=== PATIENT | male | born 1950 | race Caucasian/White ===

== ENCOUNTER 2023-09-16 14:51 | Emergency (ER) | payer MEDICARE, SELFPAY ==
--- NOTE | 2023-09-16 14:53 | XRR_ITS ---
PROCEDURE INFORMATION: Exam: XR Chest Exam date and time: 09/16/2023 2:59 PM Age: 73 years old Clinical indication: Cough and dyspnea; Additional info: Dyspnea/cough TECHNIQUE: Imaging protocol: Radiologic exam of the chest. Views: 1 view. COMPARISON: No relevant prior studies available. FINDINGS: Lungs: Unremarkable. No consolidation. Pleural spaces: Unremarkable. No pleural effusion. No pneumothorax. Heart/Mediastinum: Unremarkable. No cardiomegaly. Bones/joints: Unremarkable. XR/XR chest 1V portable [id number] IMPRESSION: No acute findings.
[2023-09-16 14:54] VITALS: PULSE 81; RESP 19; TEMP 36.8; O2SAT 92; BMI 24.3
--- NOTE | 2023-09-16 14:58 | ECG_ITS ---
[facility] Test Date: 2023-09-16 Pat Name: Jason Huang Department: Room: Gender: Male Negative Turner Apprentice: : 1950 Requested By: Yanick Ortega Order Number: [id number] Riddhi MD: Anthony Cruz M.D. Measurements Intervals [place] Rate: 89 P: 0 ME: 0 QRS: -51 QRSD: 94 T: 70 QT: 355 QTc: 432 Interpretive Statements ATRIAL FLUTTER/TACHYCARDIA WITH ABERRANT CONDUCTION OR VENTRICULAR PREMATURE COMPLEXES LEFT AXIS DEVIATION [QRS AXIS < -30] INCOMPLETE RIGHT BUNDLE BRANCH BLOCK [90+ ms QRS DURATION, TERMINAL R IN V1/V2, 40+ ms S IN I/aVL/V4/V5/V6] No previous ECG available for comparison Electronically Signed On 09-16-2023 18:42:56 CDT by Anthony Cruz M.D. [email or web address]laird hospitalAudiBell Designsking[facility] [place].[email or web address]/store/NU/[id number] f
--- NOTE | 2023-09-16 15:02 | ED_ITS ---
Documented by User: Yanick Magallon DO 09/17/23 07:49 HPI - Chest Pain 2 General: Chief Complaint: Chest Pain Stated Complaint: Chest discomfort Time Seen by Provider: 09/16/23 14:52 Source: patient Mode of arrival: ambulatory History of Present Illness: 73-year-old male who presents emergency room with complaints of intermittent episodes of chest discomfort and palpitations began 4 days ago. No known cardiac history. He does have a history of hypertension. Patient reports episodes of waking up in the middle of the night trying to catch his breath last for few seconds and then resolves. No sustained chest pain does not notice anything exacerbates or relieves his symptoms no history of coronary disease. MD complaint: chest pain Onset (ago): day(s) (4) Timing of current episode: episodic Onset: during rest Pain location: substernal Severity: mild Quality: tightness Relieving factors: nothing Exacerbating factors: nothing Associated symptoms: Deny abdominal pain, diaphoresis, dyspnea, fever(s), leg edema, nausea, palpitations, sense of impending doom, syncope or vomiting Treatment prior to arrival: none Review of Systems 2 Const: Denies: fever(s), chills or diaphoresis Card: Denies: chest pain, palpitations or syncope Resp: Denies: dyspnea GI: Denies: abdominal pain, nausea or vomiting : Denies: dysuria, urinary frequency or urinary urgency Musc: Denies: neck pain or back pain Skin/Breast: Denies: rash PFSH ED 2 PFSH: Medical History (Updated 09/16/23 @ 18:56 by Kam Chacko MD) HTN (hypertension) Physical Exam 2 Const: COMMON NORMALS: no acute distress GENERAL APPEARANCE: cooperative and comfortable ORIENTATION/CONSCIOUSNESS: Yes awake, Yes oriented to person, Yes oriented to place and Yes oriented to time HENMT: COMMON NORMALS: normocephalic, atraumatic and hearing grossly normal bilaterally HEAD & SCALP: normocephalic and atraumatic Resp: COMMON NORMALS: normal respiratory effort, No retractions, No use of accessory muscles and clear to auscultation bilaterally AUSCULTATION: clear to auscultation bilaterally Cardio: COMMON NORMALS: regular rate, regular rhythm and No murmurs present (Cardio) RATE: regular rate RHYTHM: regular rhythm GI: COMMON NORMALS: Soft to palpation and No hepatosplenomegaly present A USCULTATION: Yes normoactive bowel sounds PALPATION: Yes Soft to palpation, No Tenderness to palpation present (GI), No Guarding due to palpation present (GI) and Yes No hepatosplenomegaly present Extremity: COMMON NORMALS: normal to inspection, capillary refill normal, no clubbing, cyanosis or edema, no calf tenderness and no pedal edema Neuro: SENSORIUM/ORIENTATION: Yes oriented to person, Yes oriented to place and Yes oriented to time Skin: COMMON NORMALS: no rashes or lesions noted GENERAL SKIN EXAM: no rashes or lesions noted Course 2 Vital Signs: Vital signs: Vital Signs Temperature 98.2 F 09/16/23 14:54 Pulse Rate 73 09/16/23 19:17 Respiratory Rate 19 H 09/16/23 19:17 Blood Pressure 125/64 09/16/23 19:17 Pulse Oximetry 96 09/16/23 19:17 Oxygen Delivery Me thod Room Air 09/16/23 14:54 MDM - Chest Pain Medical Decision Making Care signed out to Dr. Chacko at change of shift. See final notes for diagnosis and disposition. I have discussed the patient's case with the off going physician <Dr. Magallon > and I have assumed care of the patient. We have discussed the current lab/radiographic results that have been resulted and the pending tests. Medical Records I reviewed the patient's medical records. Lab Data I reviewed the patient's lab results. 09/16/23 15:12 09/16/23 15:12 Radiology Impressions Chest X-Ray 09/16/23 14:53 IMPRESSION: No acute findings. Laboratory Results WBC 5.98 10^3/uL (3.29-11.43) 09/16/23 15:12 RBC 4.53 10^6/uL (3.85-5.65) 09/16/23 15:12 Hgb 13.80 g/dL (11.27-16.99) 09/16/23 15:12 Hct 42.6 % (37-53) 09/16/23 15:12 MCV 94.0 fl (82-101) 09/16/23 15:12 MCH 30.5 pg (27-33) 09/16/23 15:12 MCHC 32.4 g/dL (30-55) 09/16/23 15:12 RDW 13.2 % (12.1-15.1) 09/16/23 15:12 Plt Count 189 10^3/cmm (157-399) 09/16/23 15:12 MPV 9.7 fL (7.4-10.4) 09/16/23 15:12 Neut % (Auto) 70.8 % 09/16/23 15:12 Lymph % (Auto) 18.7 % 09/16/23 15:12 [place] % (Auto) 7.9 % 09/16/23 15:12 Eos % (Auto) 1.3 % 09/16/23 15:12 Baso % (Auto) 1.0 % 09/16/23 15:12 Neut # (Auto) 4.23 10^3/uL (1.8-7.7) 09/16/23 15:12 Lymph # (Auto) 1.1 10^3/uL (0.8-4.8) 09/16/23 15:12 [place] # (Auto) 0.5 10^3/uL (0.2-0.9) 09/16/23 15:12 Eos # (Auto) 0.1 10^3/uL (0.0-0.8) 09/16/23 15:12 Baso # (Auto) 0.1 10^3/uL (0.0-0.1) 09/16/23 15:12 Nucleated RBC % (auto) 0 % 09/16/23 15:12 Nucleated RBCs # 0.0 /100WBC 09/16/23 15:12 Sodium 137 mmol/L (136-145) 09/16/23 15:12 Potassium 3.9 mmol/L (3.5-5.1) 09/16/23 15:12 Chloride 100 mmol/L (98-107) 09/16/23 15:12 Carbon Dioxide 24 mmol/L (22-29) 09/16/23 15:12 Anion Gap 16.9 (5-19) 09/16/23 15:12 BUN 18 mg/dL (8-23) 09/16/23 15:12 Creatinine 0.9 mg/dL (0.7-1.2) 09/16/23 15:12 GFR Calculation Not Reportable 09/16/23 15:12 Glucose 94 mg/dL (65-115) 09/16/23 15:12 Calculated Osmolality 286 mOsm/kg (285-295) 09/16/23 15:12 Calcium 9.4 mg/dL (8.5-10.5) 09/16/23 15:12 Total Bilirubin 0.8 mg/dL (0.15-1.2) 09/16/23 15:12 AST 110 U/L (0-40) H 09/16/23 15:12 ALT 156 U/L (0-41) H 09/16/23 15:12 Alkaline Phosphatase 135 U/L (40-130) H 09/16/23 15:12 Troponin T Baseline 15 ng/L (0-15) 09/16/23 15:12 Troponin T 120 Minute 16.39 ng/L (0-15) H 09/16/23 17:30 Delta Troponin T 1.39 ABS# (0-10) 09/16/23 17:30 Total Protein 7.2 g/dL (6.6-8.7) 09/16/23 15:12 Albumin 4.5 g/dL (3.5-5.2) 09/16/23 15:12 Globulin 2.7 g/dL (1.3-4.6) 09/16/23 15:12 Lipase 25 U/L (13-60) 09/16/23 15:12 Urine Color Colorless (Yellow) 09/16/23 15:25 Urine Appearance Clear (CLEAR) 09/16/23 15:25 Urine pH 5 (5-7) 09/16/23 15:25 Ur Specific [place] 1.005 (1.005-1.030) 09/16/23 15:25 Urine Protein Neg (Negative) 09/16/23 15:25 Urine Glucose (UA) Norm (Normal) 09/16/23 15:25 Urine Ketones Negative (Negative) 09/16/23 15:25 Urine Blood Neg (Negative) 09/16/23 15: Urine Nitrate Negative (Negative) 09/16/23 15:25 Urine Bilirubin Neg (Negative) 09/16/23 15:25 Urine Urobilinogen Neg mg/dL (Negative) 09/16/23 15:25 Ur Leukocyte Esterase Negative (Negative) 09/16/23 15:25 Hepatitis A IgM Ab Non-reactive (Nonreactive) 09/16/23 15:12 Hep Bs Antigen Non-reactive (Nonreactive) 09/16/23 15:12 Hep B Core IgM Ab Non-reactive (Nonreactive) 09/16/23 15:12 Hepatitis C Antibody Non-reactive (Nonreactive) 09/16/23 15:12 Discharge Plan Discharge Patient Disposition: Home Clinical Impression: Atypical chest pain, Heart palpitations, Elevated liver transaminase level Condition: Stable Prescriptions: No Action lisinopril-hydrochlorothiazide 10-12.5 mg tablet 1 tab PO DAILY Discharge Orders: Discharge ED (Routine); Ordered 09/16/23 Ordered By: Kam Chacko Discharge Diet: Usual diet Discharge Activity: Resume usual activity Patient Instructions: Opioid Safety, Pain Management Activity Restrictions/Additional Instructions: Activity Restrictions/Additional Instructions: Thank you for choosing [facility] for your healthcare needs today. Please realize that you were seen in the Emergency Department and that we are providing you with an emergency medical screening exam and this may not be a complete and all inclusive of all the testing and or medical work-up that you may need to determine your ailment or severity of your illness. It is very important that you follow-up as instructed with your Primary care provider or Specialist for additional evaluation and to discuss your medical treatment plan. Coding Level of Care Code ED Veterinary Anatomist for Chg Fwd Documented by User: Kam Chacko MD 09/16/23 18:59 HPI - Chest Pain 2 General: Chief Complaint: Chest Pain Stated Complaint: Chest discomfort Time Seen by Provider: 09/16/23 14:52 [facility] ED 2 PFSH: Medical History (Updated 09/16/23 @ 18:56 by Kam Chacko MD) HTN (hypertension) Course 2 Vital Signs: Vital signs: Vital Signs Temperature 98.2 F 09/16/23 14:54 Pulse Rate 73 09/16/23 19:17 Respiratory Rate 19 H 09/16/23 19:17 Blood Pressure 125/64 09/16/23 19:17 Pulse Oximetry 96 09/16/23 19:17 Oxygen Delivery Me thod Room Air 09/16/23 14:54 MDM - Chest Pain Medical Decision Making I have discussed the patient's case with the off going physician <Dr. Magallon > and I have assumed care of the patient. We have discussed the current lab/radiographic results that have been resulted and the pending tests. Lab Data 09/16/23 15:12 09/16/23 15:12 Radiology Impressions Chest X-Ray 09/16/23 14:53 IMPRESSION: No acute findings. Laboratory Results WBC 5.98 10^3/uL (3.29-11.43) 09/16/23 15:12 RBC 4.53 10^6/uL (3.85-5.65) 09/16/23 15:12 Hgb 13.80 g/dL (11.27-16.99) 09/16/23 15:12 Hct 42.6 % (37-53) 09/16/23 15:12 MCV 94.0 fl (82-101) 09/16/23 15:12 MCH 30.5 pg (27-33) 09/16/23 15:12 MCHC 32.4 g/dL (30-55) 09/16/23 15:12 RDW 13.2 % (12.1-15.1) 09/16/23 15:12 Plt Count 189 10^3/cmm (157-399) 09/16/23 15:12 MPV 9.7 fL (7.4-10.4) 09/16/23 15:12 Neut % (Auto) 70.8 % 09/16/23 15:12 Lymph % (Auto) 18.7 % 09/16/23 15:12 [place] % (Auto) 7.9 % 09/16/23 15:12 Eos % (Auto) 1.3 % 09/16/23 15:12 Baso % (Auto) 1.0 % 09/16/23 15:12 Neut # (Auto) 4.23 10^3/uL (1.8-7.7) 09/16/23 15:12 Lymph # (Auto) 1.1 10^3/uL (0.8-4.8) 09/16/23 15:12 [place] # (Auto) 0.5 10^3/uL (0.2-0.9) 09/16/23 15:12 Eos # (Auto) 0.1 10^3/uL (0.0-0.8) 09/16/23 15:12 Baso # (Auto) 0.1 10^3/uL (0.0-0.1) 09/16/23 15:12 Nucleated RBC % (auto) 0 % 09/16/23 15:12 Nucleated RBCs # 0.0 /100WBC 09/16/23 15:12 Sodium 137 mmol/L (136-145) 09/16/23 15:12 Potassium 3.9 mmol/L (3.5-5.1) 09/16/23 15:12 Chloride 100 mmol/L (98-107) 09/16/23 15:12 Carbon Dioxide 24 mmol/L (22-29) 09/16/23 15:12 Anion Gap 16.9 (5-19) 09/16/23 15:12 BUN 18 mg/dL (8-23) 09/16/23 15:12 Creatinine 0.9 mg/dL (0.7-1.2) 09/16/23 15:12 GFR Calculation Not Reportable 09/16/23 15:12 Glucose 94 mg/dL (65-115) 09/16/23 15:12 Calculated Osmolality 286 mOsm/kg (285-295) 09/16/23 15:12 Calcium 9.4 mg/dL (8.5-10.5) 09/16/23 15:12 Total Bilirubin 0.8 mg/dL (0.15-1.2) 09/16/23 15:12 AST 110 U/L (0-40) H 09/16/23 15:12 ALT 156 U/L (0-41) H 09/16/23 15:12 Alkaline Phosphatase 135 U/L (40-130) H 09/16/23 15:12 Troponin T Baseline 15 ng/L (0-15) 09/16/23 15:12 Troponin T 120 Minute 16.39 ng/L (0-15) H 09/16/23 17:30 Delta Troponin T 1.39 ABS# (0-10) 09/16/23 17:30 Total Protein 7.2 g/dL (6.6-8.7) 09/16/23 15:12 Albumin 4.5 g/dL (3.5-5.2) 09/16/23 15:12 Globulin 2.7 g/dL (1.3-4.6) 09/16/23 15:12 Lipase 25 U/L (13-60) 09/16/23 15:12 Urine Color Colorless (Yellow) 09/16/23 15:25 Urine Appearance Clear (CLEAR) 09/16/23 15:25 Urine pH 5 (5-7) 09/16/23 15:25 Ur Specific [place] 1.005 (1.005-1.030) 09/16/23 15:25 Urine Protein Neg (Negative) 09/16/23 15:25 Urine Glucose (UA) Norm (Normal) 09/16/23 15: Urine Ketones Negative (Negative) 09/16/23 15: Urine Blood Neg (Negative) 09/16/23 15: Urine Nitrate Negative (Negative) 09/16/23 15: Urine Bilirubin Neg (Negative) 09/16/23 15:25 Urine Urobilinogen Neg mg/dL (Negative) 09/16/23 15:25 Ur Leukocyte Esterase Negative (Negative) 09/16/23 15:25 Hepatitis A IgM Ab Non-reactive (Nonreactive) 09/16/23 15:12 Hep Bs Antigen Non-reactive (Nonreactive) 09/16/23 15:12 Hep B Core IgM Ab Non-reactive (Nonreactive) 09/16/23 15:12 Hepatitis C Antibody Non-reactive (Nonreactive) 09/16/23 15:12 All radiology interpretation(s) finalized by discharge Discharge Plan Discharge Patient Disposition: Home Clinical Impression: Atypical chest pain, Heart palpitations, Elevated liver transaminase level Condition: Stable Prescriptions: No Action lisinopril-hydrochlorothiazide 10-12.5 mg tablet 1 tab PO DAILY Discharge Orders: Discharge ED (Routine); Ordered 09/16/23 Ordered By: Kam Chacko Discharge Diet: Usual diet Discharge Activity: Resume usual activity Patient Instructions: Opioid Safety, Pain Management Activity Restrictions/Additional Instructions: Activity Restrictions/Additional Instructions: Thank you for choosing [facility] for your healthcare needs today. Please realize that you were seen in the Emergency Department and that we are providing you with an emergency medical screening exam and this may not be a complete and all inclusive of all the testing and or medical work-up that you may need to determine your ailment or severity of your illness. It is very important that you follow-up as instructed with your Primary care provider or Specialist for additional evaluation and to discuss your medical treatment plan. Coding Level of Care Code ED Veterinary Anatomist for Maria L Encarnacion
[2023-09-16] MEDS: labetalol 5 mg/mL SDV 20mL 10 MG IVP (15:24)
[2023-09-16 15:25] LABS: Basophils # 0.1 10^3/uL (0.0-0.1); Eosinophils # 0.1 10^3/uL (0.0-0.8); Eosinophils % 1.3 %; Hematocrit 42.6 % (37-53); Lymphocytes # 1.1 10^3/uL (0.8-4.8); Lymphocytes % 18.7 %; Mean Corpuscular HGB Conc 32.4 g/dL (30-55); Mean Corpuscular Hemoglobin 30.5 pg (27-33); Mean Platelet Volume 9.7 fL (7.4-10.4); Monocytes # 0.5 10^3/uL (0.2-0.9); Monocytes % 7.9 %; Neutrophils # 4.23 10^3/uL (1.8-7.7); Neutrophils % 70.8 %; Nucleated Red Blood Cells % 0 %; Platelet Count 189 10^3/cmm (157-399); Red Blood Count 4.53 10^6/uL (3.85-5.65); Red Cell Distribution Width 13.2 % (12.1-15.1); White Blood Count 5.98 10^3/uL (3.29-11.43)
[2023-09-16 15:27] VITALS: BP 194/86; PULSE 86; RESP 25; O2SAT 96
[2023-09-16 15:39] LABS: Alanine Aminotransferase 156 U/L (0-41); Albumin Level 4.5 g/dL (3.5-5.2); Alkaline Phosphatase 135 U/L (40-130); Anion Gap 16.9 (5-19); Aspartate Amino Transferase 110 U/L (0-40); Blood Urea Nitrogen 18 mg/dL (8-23); Calcium 9.4 mg/dL (8.5-10.5); Carbon Dioxide 24 mmol/L (22-29); Chloride 100 mmol/L (98-107); Creatinine Clr Calc Pharmacy 72.4489; Globulin 2.7 g/dL (1.3-4.6); Glucose 94 mg/dL (65-115); Osmolality Calculated 286 mOsm/kg (285-295); Potassium 3.9 mmol/L (3.5-5.1); Sodium 137 mmol/L (136-145); Total Bilirubin 0.8 mg/dL (0.15-1.2); Total Protein 7.2 g/dL (6.6-8.7)
[2023-09-16 15:43] LABS: Add Urine Microscopic? NO; Charge for UA Resulting for Rev
[2023-09-16 15:48] LABS: Bilirubin Urine Neg (Negative); Blood Urine Neg (Negative); Glucose Urine UA Norm (Normal); Ketones Urine Negative (Negative); Leukocyte Esterase Urine Negative (Negative); Nitrate Urine Negative (Negative); Protein Urine Neg (Negative); Specific Gravity, Urine 1.005 (1.005-1.030); Urine Appearance Clear (CLEAR); Urine Color Colorless (Yellow); Urobilinogen Urine Neg (Negative); pH Urine 5 (5-7)
[2023-09-16 15:50] VITALS: BP 130/90
--- NOTE | 2023-09-16 16:09 | PC.NURSE ---
Glucose recheck: 200 via fingerstick, Dr. Magallon notified
[2023-09-16 16:15] LABS: Lipase 25 U/L (13-60)
--- NOTE | 2023-09-16 16:41 | ECG_ITS ---
[facility] Test Date: 2023-09-16 Pat Name: Jason Huang Department: Room: Gender: Male Laboratory Clerk: : 1950 Requested By: Yanick Ortega Order Number: [id number] Riddhi MD: Anthony Cruz M.D. Measurements Intervals [place] Rate: 62 P: 0 MA: 0 QRS: -42 QRSD: 98 T: -8 QT: 466 QTc: 475 Interpretive Statements ATRIAL FLUTTER/TACHYCARDIA WITH ABERRANT CONDUCTION OR VENTRICULAR PREMATURE COMPLEXES LEFT AXIS DEVIATION [QRS AXIS < -30] POSSIBLE ANTERIOR MYOCARDIAL INFARCTION , PROBABLY OLD [30 ms Q WAVE IN V3/V4, OR R < 0.2 mV IN V4] Compared to ECG 09/16/2023 14:58:45 Ventricular premature complex(es) now present Myocardial infarct finding now present Incomplete right bundle-branch block no longer present Electronically Signed On 09-16-2023 18:43:50 CDT by Anthony Cruz M.D. [id number]
[2023-09-16 17:11] LABS: Troponin(5th) Baseline 15 ng/L (0-15)
[2023-09-16 18:00] VITALS: BP 133/69; PULSE 74; O2SAT 98
[2023-09-16 18:10] LABS: Troponin 5 2HR 16.39 ng/L (0-15); Troponin 5 2HR Delta 1.39 ABS# (0-10)
[2023-09-16 19:17] VITALS: BP 125/64; PULSE 73; RESP 19; O2SAT 96
[2023-09-16 21:00] LABS: Hepatitis A Antibody IgM Non-Reactive (Nonreactive); Hepatitis B Core IgM Non-Reactive (Nonreactive); Hepatitis B Surface Antigen Non-Reactive (Nonreactive)
[2023-09-17 02:25] LABS: Hepatitis C Virus Antibody Non-Reactive (Nonreactive)
== END 2023-09-16 19:19 | disposition home or self-care (01) ==
PROVIDERS: Family Medicine; Emergency Provider Internal Medicine; PCP Nurse Practitioner Family
DX: R07.89 Other chest pain (principal); R00.2 Palpitations; R74.01 Elevation of levels of liver transaminase levels; I10 Essential (primary) hypertension
CPT/HCPCS: 36415; 71045; 80053; 80074; 81003; 83690; 84484; 85025; 93005; 96374; 99285; J3490

== ENCOUNTER 2023-09-18 12:30 | Inpatient (IN) | payer MEDICARE, SELFPAY ==
[2023-09-18] VITALS (22 sets, daily range): BP systolic 113–193; BP diastolic 60–128; PULSE 56–87; RESP 11–22; TEMP 36.7–36.9; O2SAT 93–98; BMI 24.3
--- NOTE | 2023-09-18 12:47 | XR_ITS ---
WS: [id number] Portable AP upright chest, 09/18/2023 Clinical Data: htn Comparison: Portable chest, 09/16/2023 Findings: No nodules, masses or effusions are seen. The heart is normal. The pulmonary vascularity is not increased. No pneumonia or pneumothorax is seen. The aortic arch and descending thoracic aorta s how tortuosity. Impression: Atherosclerosis.
--- NOTE | 2023-09-18 13:21 | ED_ITS ---
HPI - Recheck/Abnormal Lab/Rx 2 General: Chief Complaint: Recheck/Abnormal Lab/Rx Stated Complaint: elevated bp Time Seen by Provider: 09/18/23 13:11 Source: patient Mode of arrival: ambulatory History of Present Illness: 73-year-old male presents to the emergen cy room from [facility]. He was seen 2 days ago here with palpitation unusual shortness of breath cardiac evaluation was negative blood pressure initially was elevated and then improved. He was discharged home with no medication changes. He presented to [facility] again today they reported elevated blood pressure. No chest pain at this time. Patient has known atrial fibrillation but his rate has been controlled. Family at the bedside later states his rate had [facility] was in the 30s. He is still taking lisinopril hydrochlorothiazide daily. Review of Systems 2 Const: Denies: fever(s) or chills Card: Denies: chest pain Resp: Denies: dyspnea GI: Denies: abdominal pain : Denies: dysuria, urinary frequency or urinary urgency Musc: Denies: neck pain or back pain Skin/Breast: Denies: rash PFSH ED 2 PFSH: Medical History HTN (hypertension) Physical Exam 2 Const: GENERAL APPEARANCE: cooperative and comfortable O RIENTATION/CONSCIOUSNESS: Yes awake, Yes oriented to person, Yes oriented to place and Yes oriented to time HENMT: COMMON NORMALS: normocephalic, atraumatic and hearing grossly normal bilaterally HEAD & SCALP: normocephalic and atraumatic Resp: COMMON NORMALS: normal respiratory effort, No retractions, No use of accessory muscles and clear to auscultation bilaterally AUSCULTATION: clear to auscultation bilaterally Cardio: COMMON NORMALS: regular rate and No murmurs present (Cardio) RATE: regular rate RHYTHM: abnormal rhythm irregularly irregular GI: COMMON NORMALS: Soft to palpation and No hepatosplenomegaly present A USCULTATION: Yes normoactive bowel sounds PALPATION: Yes Soft to palpation, No Tenderness to palpation present (GI), No Guarding due to palpation present (GI) and Yes No hepatosplenomegaly present Extremity: COMMON NORMALS: normal to inspection, capillary refill normal, no clubbing, cyanosis or edema, no calf tenderness and no pedal edema Neuro: SENSORIUM/ORIENTATION: Yes oriented to person, Yes oriented to place and Yes oriented to time Skin: COMMON NORMALS: no rashes or lesions noted GENERAL SKIN EXAM: no rashes or lesions noted Course 2 Vital Signs: Vital signs: Vital Signs Temperature 98.1 F 09/18/23 12:37 Pulse Rate 87 09/18/23 12:37 Respiratory Rate 16 09/18/23 12:37 Blood Pressure 168/98 09/18/23 17:50 Pulse Oximetry 95 09/18/23 15:00 Oxygen Delivery Me thod Room Air 09/18/23 15:00 MDM - Recheck/Abnormal Lab/Rx Medical Decision Making Cardiac enzymes negative. Went back talk to patient has not had any further symptoms. Family had noted some rates in the 30s while he was here had not been notified a staff and had not noticed that on the monitor while he was here. While I was in the room he started having significant frequent PVCs. He has known A-fib flutter with a rate has been well-controlled. When he seen him a couple days ago it was well-controlled he was discharged home. Initially gave him metoprolol 25 mg once. About an hour and a half that hour and 45 minutes after getting that he had a sustained run in the 30s. We pulled that up off of the electronic monitoring system printed out and scanned into the chart. Looks like at times he may have been in a full heart block. He did never had any symptoms from that and was not hypotensive. Discussed with the patient and the family will admit discussed with hospitalist and consulted Dr. Cruz from cardiology. Blood pressure still mildly hypertensive but reasonably well- controlled at this point. Medical Records I reviewed the patient's medical records. Lab Data I reviewed the patient's lab results. 09/18/23 13:29 09/18/23 13:29 Laboratory Results WBC 6.38 10^3/uL (3.29-11.43) 09/18/23 13:29 RBC 4.46 10^6/uL (3.85-5.65) 09/18/23 13:29 Hgb 13.80 g/dL (11.27-16.99) 09/18/23 13:29 Hct 42.2 % (37-53) 09/18/23 13:29 MCV 94.6 fl (82-101) 09/18/23 13: MCH 30.9 pg (27-33) 09/18/23 13: MCHC 32.7 g/dL (30-55) 09/18/23 13: RDW 13.2 % (12.1-15.1) 09/18/23 13: Plt Count 195 10^3/cmm (157-399) 09/18/23 13: MPV 9.7 fL (7.4-10.4) 09/18/23 13: Neut % (Auto) 75.6 % 09/18/23 13: Lymph % (Auto) 13.8 % 09/18/23 13: [place] % (Auto) 8.9 % 09/18/23 13: Eos % (Auto) 0.6 % 09/18/23 13: Baso % (Auto) 0.8 % 09/18/23 13: Neut # (Auto) 4.82 10^3/uL (1.8-7.7) 09/18/23 13:29 Lymph # (Auto) 0.9 10^3/uL (0.8-4.8) 09/18/23 13:29 [place] # (Auto) 0.6 10^3/uL (0.2-0.9) 09/18/23 13: Eos # (Auto) 0.0 10^3/uL (0.0-0.8) 09/18/23 13: Baso # (Auto) 0.1 10^3/uL (0.0-0.1) 09/18/23 13: Nucleated RBC % (auto) 0 % 09/18/23 13: Nucleated RBCs # 0.0 /100WBC 09/18/23 13:29 Sodium 140 mmol/L (136-145) 09/18/23 13:29 Potassium 4.2 mmol/L (3.5-5.1) 09/18/23 13: Chloride 102 mmol/L (98-107) 09/18/23 13: Carbon Dioxide 25 mmol/L (22-29) 09/18/23 13:29 Anion Gap 17.2 (5-19) 09/18/23 13:29 BUN 23 mg/dL (8-23) 09/18/23 13:29 Creatinine 0.9 mg/dL (0.7-1.2) 09/18/23 13:29 GFR Calculation Not Reportable 09/18/23 13:29 Glucose 113 mg/dL (65-115) 09/18/23 13:29 Calculated Osmolality 294 mOsm/kg (285-295) 09/18/23 13:29 Calcium 9.6 mg/dL (8.5-10.5) 09/18/23 13:29 Total Bilirubin 0.6 mg/dL (0.15-1.2) 09/18/23 13:29 AST 75 U/L (0-40) H 09/18/23 13:29 ALT 174 U/L (0-41) H 09/18/23 13:29 Alkaline Phosphatase 138 U/L (40-130) H 09/18/23 13:29 Troponin T Baseline 16 ng/L (0-15) H 09/18/23 13:29 Troponin T 120 Minute 17.03 ng/L (0-15) H 09/18/23 15:46 Delta Troponin T 1.03 ABS# (0-10) 09/18/23 15:46 NT-Pro-B Natriuret Pep 1768 pg/mL (0-125) H 09/18/23 13:29 Total Protein 6.9 g/dL (6.6-8.7) 09/18/23 13:29 Albumin 4.6 g/dL (3.5-5.2) 09/18/23 13:29 Globulin 2.3 g/dL (1.3-4.6) 09/18/23 13:29 TSH 1.61 uIU/mL (0.27-4.20) 09/18/23 13:29 All radiology interpretation(s) finalized by discharge Discharge Plan Discharge Patient Disposition: Admitted As Inpatient Clinical Impression: HTN (hypertension), Bradycardia, severe sinus, Atrial fibrillation/flutter Condition: Stable Prescriptions: No Action lisinopril-hydrochlorothiazide 10-12.5 mg tablet 1 tab PO DAILY Referrals: Snow Barahona FNP [Primary Care Provider] - Coding Level of Care Code ED Mechanical Cad Designer for Refugiog Alysha
--- NOTE | 2023-09-18 13:25 | ECG_ITS ---
[facility] Test Date: 2023-09-18 Pat Name: Jason Huang Department: Room: Gender: Male Roll Weigher: : 1950 Requested By: Ana Ortega Order Number: [id number] CARLOS Hannon MD: Quincy Payne M.D. Measurements Intervals [place] Rate: 76 P: 0 ND: 0 QRS: -46 QRSD: 102 T: 82 QT: 406 QTc: 457 Interpretive Statements ATRIAL FLUTTER WITH ABERRANT CONDUCTION OR VENTRICULAR PREMATURE COMPLEXES LEFT ANTERIOR FASCICULAR BLOCK [QRS AXIS <= -45, QR IN I, RS IN II] MINIMAL VOLTAGE CRITERIA FOR LVH, CONSIDER NORMAL VARIANT [MEETS CRITERIA IN ONE OF: R(aVL), S(V1), R(V5), R(V5/V6)+S(V1)] SEPTAL MYOCARDIAL INFARCTION , PROBABLY OLD [40+ ms Q WAVE IN V1/V2] Compared to ECG 09/16/2023 16:53:17 Ventricular premature complex(es) now present Left anterior fascicular block now present Left-axis deviation no longer present Myocardial infarct finding still present Electronically Signed On 09-18-2023 17:00:13 CDT by Quincy Payne M.D. [email or web address] Brands[email or web address].[employer]/store/OM/[id number]
[2023-09-18 13:36] LABS: Basophils # 0.1 10^3/uL (0.0-0.1); Basophils % 0.8 %; Eosinophils % 0.6 %; Hematocrit 42.2 % (37-53); Lymphocytes # 0.9 10^3/uL (0.8-4.8); Lymphocytes % 13.8 %; Mean Corpuscular HGB Conc 32.7 g/dL (30-55); Mean Corpuscular Hemoglobin 30.9 pg (27-33); Mean Corpuscular Volume 94.6 fl (82-101); Mean Platelet Volume 9.7 fL (7.4-10.4); Monocytes # 0.6 10^3/uL (0.2-0.9); Monocytes % 8.9 %; Neutrophils # 4.82 10^3/uL (1.8-7.7); Neutrophils % 75.6 %; Nucleated Red Blood Cells % 0 %; Platelet Count 195 10^3/cmm (157-399); Red Blood Count 4.46 10^6/uL (3.85-5.65); Red Cell Distribution Width 13.2 % (12.1-15.1); White Blood Count 6.38 10^3/uL (3.29-11.43)
[2023-09-18 13:56] LABS: Troponin(5th) Baseline 16 ng/L (0-15)
[2023-09-18 13:57] LABS: Alanine Aminotransferase 174 U/L (0-41); Albumin Level 4.6 g/dL (3.5-5.2); Alkaline Phosphatase 138 U/L (40-130); Anion Gap 17.2 (5-19); Aspartate Amino Transferase 75 U/L (0-40); Blood Urea Nitrogen 23 mg/dL (8-23); Calcium 9.6 mg/dL (8.5-10.5); Carbon Dioxide 25 mmol/L (22-29); Chloride 102 mmol/L (98-107); Creatinine Clr Calc Pharmacy 72.4489; Globulin 2.3 g/dL (1.3-4.6); Glucose 113 mg/dL (65-115); Osmolality Calculated 294 mOsm/kg (285-295); Potassium 4.2 mmol/L (3.5-5.1); Sodium 140 mmol/L (136-145); Total Bilirubin 0.6 mg/dL (0.15-1.2); Total Protein 6.9 g/dL (6.6-8.7)
[2023-09-18] MEDS: metoprolol tartrate 25 mg Tablet PO (14:01)
[2023-09-18 14:03] LABS: Thyroid Stimulating Hormone 1.61 uIU/mL (0.27-4.20)
[2023-09-18 14:25] LABS: NT Pro B Type Natriuretic Pept 1768 pg/mL (0-125)
--- NOTE | 2023-09-18 14:42 | ECG_ITS ---
[facility] Test Date: 2023-09-18 Pat Name: Jason Huang Department: Room: Gender: Male Instructor Dancing: : 1950 Requested By: Ana Ortega Order Number: [id number] Hannon MD: Quincy Payne M.D. Measurements Intervals [place] Rate: 73 P: 0 MD: 0 QRS: -36 QRSD: 110 T: 60 QT: 416 QTc: 460 Interpretive Statements ATRIAL FLUTTER WITH ABERRANT CONDUCTION OR VENTRICULAR PREMATURE COMPLEXES LEFT AXIS DEVIATION [QRS AXIS < -30] Compared to ECG 09/18/2023 13:25:56 Left-axis deviation now present Left anterior fascicular block no longer present Myocardial infarct finding no longer present Electronically Signed On 09-18-2023 17:04:34 CDT by Quincy Payne M.D. [email or web address]/[id number]
[2023-09-18 16:10] LABS: Troponin 5 2HR 17.03 ng/L (0-15); Troponin 5 2HR Delta 1.03 ABS# (0-10)
--- NOTE | 2023-09-18 17:15 | PM.CONSULT ---
Providers/Reason For Consult Consulting Physician/Specialty*: ECHO Cruz MD/cardiology Reason for Consult*: Patient with atrial fibrillation and bradycardia Primary Care Provider: JOSE LUIS Lyons History of Present Illness History of Present Illness Jason Huang is a 73 year old male with a history of hypertension and atrial fibrillation, is admitted to hospital through the emergency room where he presented with uncontrolled blood pressure and bradycardia. Patient was found to be in atrial fibrillation with mostly controlled ventricular response rate. He developed a bradycardic episode while being in the emergency room. Cardiology consult is requested for further cardiac evaluation recommendations. According the patient, he was diagnosed with high blood pressure 8 years ago while he was undergoing hernia surgery. He has been on medications since then. For the last few days, his blood pressure has been staying high in the 180s and 190s. This morning as he woke up, the blood pressure was around 190, systolic. He was seen at the [facility] by the primary care provider. His systolic blood pressure was in the 200 range at that time. He also was found to have heart rate in the 30s for a while. For this reason, he was sent to our emergency room. In the emergency room, he was found to be in atrial fibrillation with frequent PVCs. Patient was given a dose of metoprolol 25 mg p.o. An hour later, his heart rate dropped into the 30s, on the monitor. Patient did not have any chest pain or chest tightness. No palpitation, dizziness or syncopal episode. He been having some amount of dyspnea on exertion lately. But no orthopnea PND. No fever, chills or cough. Patient was told to have atrial fibrillation approximately year ago. He was recommended for oral anticoagulation but patient declined. His father had a myocardial infarction in his 60s. No other relevant family history. Denies any smoking abuse, alcohol abuse or any other substance abuse. Review of Systems Narrative: CONSTITUTIONAL: No fever or chills. EYES: No blurring of vision or other visual disturbances lately. ENT: No hoarseness of voice, auditory disturbances or sore throat. CARDIOVASCULAR: As mentioned above. RESPIRATORY: No significant cough. GASTROINTESTINAL: No hematemesis or melena. GENITOURINARY: No dysuria or hematuria. INTEGUMENTARY: No skin rashes or history of skin cancer. NEURO: No transient ischemic attacks or amaurosis. PSYCHIATRIC: No history of psychosis or major depression. HEMATOLOGIC: No bleeding disorders or significant anemia. ENDOCRINE: No history of polyuria or polydipsia. MUSCULOSKELETAL: No recent joint pain or swelling. ALLERGY/IMMUNOLOGY: As mentioned above. Medications/Allergies Home Medications Medication Instructions Recorded Confirmed Last Taken Type lisinopril 10 1 tab PO DAILY 09/16/23 09/18/23 09/18/23 History mg-hydrochlorothiazide 12.5 mg tablet Allergies Allergy/AdvReac Type Severity Reaction Status Date / Time No Known Allergies Allergy Verified 09/16/23 15:02 PFSH Acute PFSH: Medical History HTN (hypertension) Social History (Updated 09/18/23 @ 18:40 by Ivet Wilson MD) Smoking and tobacco/nicotine status: never used tobacco/nicotine Alcohol intake: current Substance/Drug Use: never Vitals/I&O/Wt Last Vital Signs Temp 98.1 F 09/18/23 12:37 Pulse 87 09/18/23 12:37 Resp 16 09/18/23 12:37 BP 160/86 09/18/23 16:40 Pulse Ox 95 09/18/23 15:00 O2 Del Method Room Air 09/18/23 15:00 Weight last 48 hrs Weight 160 lb Physical Exam Narrative: GENERAL: The patient is alert and oriented times three. Not in any acute distress. HEENT: No significant pallor, icterus or lymphadenopathy.Oral cavity: There are no mucous membrane lesions. NECK: Trachea appears to be central. No masses noted. No JVD or thyromegaly appreciated. RESPIRATORY: Chest is symmetrical. No intercostals muscle retraction or any accessory muscle activation. There is no chest wall tenderness. Breath sounds are heard bilaterally. No rales or rhonchi heard. No evidence of any consolidation. BREASTS: Deferred. HEART: The heart sounds are normal. No S3 or S4. Short systolic murmur at the lower sternal border. No diastolic murmurs. No pericardial rub ABDOMEN: No vessel pulsations or distention. No tenderness. No organomegaly appreciated. Bowel sounds are normally heard. : Deferred. RECTAL: Deferred. LYMPHATIC: No lymphadenopathy noted in the neck. EXTREMITIES: No edema or cyanosis. No clubbing. MUSCULOSKELETAL: No acute joint deformities or swelling SKIN: There are no significant rashes or ecchymosis NEUROPSYCHIATRIC: The patient is alert and oriented x3. Appears to be in a good mood. No tremors or rigidity noted. Data 09/18/23 13:29 09/18/23 13: Other Labs: Laboratory Last Values WBC 6.38 10^3/uL (3.29-11.43) 09/18/23 13:29 RBC 4.46 10^6/uL (3.85-5.65) 09/18/23 13:29 Hgb 13.80 g/dL (11.27-16.99) 09/18/23 13:29 Hct 42.2 % (37-53) 09/18/23 13:29 MCV 94.6 fl (82-101) 09/18/23 13:29 MCH 30.9 pg (27-33) 09/18/23 13:29 MCHC 32.7 g/dL (30-55) 09/18/23 13:29 RDW 13.2 % (12.1-15.1) 09/18/23 13:29 Plt Count 195 10^3/cmm (157-399) 09/18/23 13: MPV 9.7 fL (7.4-10.4) 09/18/23 13: Neut % (Auto) 75.6 % 09/18/23 13:29 Lymph % (Auto) 13.8 % 09/18/23 13: [place] % (Auto) 8.9 % 09/18/23 13:29 Eos % (Auto) 0.6 % 09/18/23 13:29 Baso % (Auto) 0.8 % 09/18/23 13:29 Neut # (Auto) 4.82 10^3/uL (1.8-7.7) 09/18/23 13:29 Lymph # (Auto) 0.9 10^3/uL (0.8-4.8) 09/18/23 13: [place] # (Auto) 0.6 10^3/uL (0.2-0.9) 09/18/23 13:29 Eos # (Auto) 0.0 10^3/uL (0.0-0.8) 09/18/23 13:29 Baso # (Auto) 0.1 10^3/uL (0.0-0.1) 09/18/23 13:29 Nucleated RBC % (auto) 0 % 09/18/23 13: Nucleated RBCs # 0.0 /100WBC 09/18/23 13:29 Sodium 140 mmol/L (136-145) 09/18/23 13:29 Potassium 4.2 mmol/L (3.5-5.1) 09/18/23 13:29 Chloride 102 mmol/L (98-107) 09/18/23 13:29 Carbon Dioxide 25 mmol/L (22-29) 09/18/23 13:29 Anion Gap 17.2 (5-19) 09/18/23 13:29 BUN 23 mg/dL (8-23) 09/18/23 13:29 Creatinine 0.9 mg/dL (0.7-1.2) 09/18/23 13:29 GFR Calculation Not Reportable 09/18/23 13:29 Glucose 113 mg/dL (65-115) 09/18/23 13:29 Calculated Osmolality 294 mOsm/kg (285-295) 09/18/23 13:29 Calcium 9.6 mg/dL (8.5-10.5) 09/18/23 13:29 Total Bilirubin 0.6 mg/dL (0.15-1.2) 09/18/23 13:29 AST 75 U/L (0-40) H 09/18/23 13:29 ALT 174 U/L (0-41) H 09/18/23 13:29 Alkaline Phosphatase 138 U/L (40-130) H 09/18/23 13:29 Troponin T Baseline 16 ng/L (0-15) H 09/18/23 13:29 Troponin T 120 Minute 17.03 ng/L (0-15) H 09/18/23 15:46 Delta Troponin T 1.03 ABS# (0-10) 09/18/23 15:46 Troponin T Hi Sens 6Hr 17.46 ng/L (0-15) H 09/18/23 19:11 Troponin T Hi Sens 6Hr Delta 1.46 ng/L (0-12) 09/18/23 19:11 NT-Pro-B Natriuret Pep 1768 pg/mL (0-125) H 09/18/23 13:29 Total Protein 6.9 g/dL (6.6-8.7) 09/18/23 13:29 Albumin 4.6 g/dL (3.5-5.2) 09/18/23 13:29 Globulin 2.3 g/dL (1.3-4.6) 09/18/23 13:29 TSH 1.61 uIU/mL (0.27-4.20) 09/18/23 13:29 CXR: My impression: Chest x-ray shows normal cardiac silhouette with no lung infiltrate. Tortuous arch of the aorta and descending aorta. EKG 1: My Interpretation: Atrial fibrillation with controlled ventricular response rate. Frequent PVCs. Diffuse nonspecific T wave changes. A&P Assessment and plan (1) Atrial fibrillation/flutter: Patient needs to be on long-term oral anticoagulation because of high thromboembolic risk. I may start him on Lovenox at this time. (2) Bradycardia, severe sinus: Review of the EKG showed a atrial fibrillation with a frequent PVCs in the form of bigeminy and post PVC pauses. I will hold off on any AV lizeth blocking agents at this time. I may add some Mag-Tab SR 84 mg 2 tablets daily (3) HTN (hypertension): Blood pressure seems to be getting under control. Continue to optimize the antihypertensive medication. Qualifiers: Hypertension type: primary hypertension Qualified Code(s): I10 - Essential (primary) hypertension (4) Ventricular arrhythmia: Etiology is not clear. The LV function is not known. After reviewing the echocardiogram, further recommendations will be made. (5) Elevated brain natriuretic peptide (BNP) level: This could be multifactorial. Atrial fibrillation, frequent ventricular arrhythmia, LV dysfunction, etc. are contributing factors. Patient has no clinical evidence of any overt heart failure at this time. Plan Will go ahead and do an echocardiogram as soon as possible. Also may start him on therapeutic dose of Lovenox. Check on the lipid profile in the morning. Will optimize antihypertensive medications. Mag-Tab SR 84 mg 2 tablets p.o. daily. Based on the clinical progress and the results of the above, further recommendations will be made. Thank you for the opportunity to evaluate this patient and make these recommendations Consult Attestations Medical Necessity Statement: Patient requires continued hospital stay for close monitoring and further management Coding Level of Care Code 94576 Diagnoses Atrial fibrillation/flutter I48.91; I48.92 Bradycardia, severe sinus R00.1 Primary hypertension I10 Hypertension type: primary hypertension Ventricular arrhythmia I49.9 Elevated brain natriuretic peptide (BNP) level R79.89
--- NOTE | 2023-09-18 17:23 | P.HP_ITS ---
Providers/Chief Complaint 2 Primary Care Provider: JOSE LUIS Lyons Chief Complaint: elevated bp History of Present Illness Mr Jason Huang is a 73 year old man with PMH of hypertension who presents today from [facility] for further evaluation of elevated blood pressure. Patient also was reported to have had bradycardia at the clinic with heart rate in the 30's. He was seen in the ER about 2 days ago for palpitations. His blood pressure was elevated at that time, which improved in the ER. Cardiac work up was also negative. His EKG showed atrial flutter. He was discharged home without any medication changes. He presented to the urgent care clinic for SOB while asleep, seems to be describing PND , he was found to have to have elevated BP and bradycradia. On arrival to the ER, his blood pressure was elevated to about 194/86, and he was noted to have a normal heart rate. He was given metoprolol po 25mg and he was said to have become bradycardic for a few mins , rhythm was reported to show ? complete heart block, which converted to atrial fibrillation /flutter. He is currently rate controlled . He denies fever, chills, chest pain, cough , abdominal pain , nausea, vomiting , constipation , diarrhea . EKG shows atrial flutter with PVS vs abberant conduction. Labs showed elevated BNP . Chest x-ray showed arteriosclerosis , no acute process. Review of Systems 2 Const: Denies: fever(s) or chills Card: Denies: chest pain Resp: Denies: dyspnea GI: Denies: abdominal pain : Denies: dysuria, urinary frequency or urinary urgency Musc: Denies: neck pain or back pain Skin/Breast: Denies: rash Medications/Allergies Home Medications Medication Instructions Recorded Confirmed Last Taken Type lisinopril 10 1 tab PO DAILY 09/16/23 09/18/23 09/18/23 History mg-hydrochlorothiazide 12.5 mg tablet Allergies Allergy/AdvReac Type Severity Reaction Status Date / Time No Known Allergies Allergy Verified 09/16/23 15:02 PFSH Acute 2 PFSH: Medical History HTN (hypertension) Social History (Updated 09/18/23 @ 18:40 by Ivet Wilson MD) Smoking and tobacco/nicotine status: never used tobacco/nicotine Alcohol intake: current Substance/Drug Use: never Vitals/I&O/Wt Last Vital Signs Temp 98.1 F 09/18/23 12:37 Pulse 87 09/18/23 12:37 Resp 16 09/18/23 12:37 BP 160/86 09/18/23 16:40 Pulse Ox 95 09/18/23 15:00 O2 Del Method Room Air 09/18/23 15:00 Weight last 48 hrs Weight 72.575 kg Physical Exam 2 Const: COMMON NORMALS: no acute distress, patient oriented x3 and alert HENMT: COMMON NORMALS: normocephalic, atraumatic, external ears normal, Normal external nose present, moist oral mucous membranes and oropharynx normal HEAD & SCALP: normocephalic and atraumatic NOSE: Normal external nose present E XTERNAL EAR: Yes external ears normal Eye: COMMON NORMALS: Equal, round and reactive pupils present, EOMs intact bilaterally, conjunctivae normal and no scleral icterus CONJUNCTIVA: Yes conjunctivae normal PUPIL: Yes Equal, round and reactive pupils present Neck/C-Spine: COMMON NORMALS: full ROM, no lymphadenopathy and no JVD Chest: COMMONS NORMALS: normal inspection of the chest Resp: COMMON NORMALS: normal respiratory effort and clear to auscultation bilaterally AUSCULTATION: clear to auscultation bilaterally OTHER: No wheezes or crcakles Cardio: COMMON NORMALS: Peripheral pulses 2+ throughout OTHER: S1, s2, irregular rate and rhythm , bradycardia GI: COMMON NORMALS: Normal to inspection, nondistended, normoactive bowel sounds present, Soft to palpation and non-tender PALPATION: Yes Soft to palpation Extremity: COMMON NORMALS: normal to inspection and no pedal edema Neuro: COMMON NORMALS: patient oriented x3 SENSORIUM/ORIENTATION: Yes alert OTHER: No gross focal deficits Data 09/18/23 13:29 09/18/23 13:29 A&P Assessment and plan (1) Bradycardia, unspecified: (2) Atrial fibrillation/flutter: (3) Elevated liver transaminase level: (4) Atypical chest pain: (5) HTN (hypertension): Plan # Assymptomatic bradycardia # Atrial flutter -Patient noted to have bradycardia at the outside clinic prior to presentation -EKG in ER shows atrial flutter with aberrant rhythm versus PVCs. Patient also reported to have had an episode of ? complete heart block in the ER which converted to atrial flutter. -Patient is currently asymptomatic, blood pressure is elevated, he is AAO x 3. -Patient does not have a known diagnosis of atrial fibrillation/flutter. His [id number] score is at least 2. He will need anticoagulation. -Will continue telemetry monitoring -Serial EKGs as appropriate -Check tickborne illness panel, TTE. TSH is WNL - Cardiology consulted -Patient admitted to stepdown unit for close cardiopulmonary monitoring # Chest pain -In the setting of atrial flutter/fibrillation -EKG negative for STEMI -Check serial troponins -Telemetry monitoring -Echo be ordered as above # Elevated BNP -Patient does not seem overtly volume overloaded -Chest x-ray shows no signs of pulmonary edema -Echo ordered as above # History of hypertension -Continue to monitor blood pressure -Will hold antihypertensives for now except if blood pressure greater than 180/100 # Elevated transaminases -Unclear etiology -Patient reports alcohol use -Will check liver ultrasound Attestations 2 Medical Necessity Statement*: Patient will be admitted to inpatient. He has bradycardia, newly diagnosed atrial flutter , and elevated blood pressure and requires continuous cardiopulmonary monitoring in the CCU. Coding Level of Care Code Acute Code for [facility] Diagnoses Bradycardia, unspecified R00.1 Atrial fibrillation/flutter I48.91; I48.92 Elevated liver transaminase level R74.01 Atypical chest pain R07.89 HTN (hypertension) I10
--- NOTE | 2023-09-18 18:48 | ECG_ITS ---
[facility] Test Date: 2023-09-18 Pat Name: Jason Huang Department: Room: 111 Gender: Male [employer]ter Helper: : 1950 Requested By: Ana Ortega Order Number: [id number] Hannon MD: Quincy Payne M.D. Measurements Intervals Hi Hat Rate: 74 P: 0 WV: 0 QRS: -37 QRSD: 101 T: 65 QT: 393 QTc: 438 Interpretive Statements ATRIAL FLUTTER/TACHYCARDIA WITH ABERRANT CONDUCTION OR VENTRICULAR PREMATURE COMPLEXES LEFT AXIS DEVIATION [QRS AXIS < -30] SEPTAL MYOCARDIAL INFARCTION , OF INDETERMINATE AGE [40+ ms Q WAVE IN V1/V2] Compared to ECG 09/18/2023 14:42:54 Myocardial infarct finding now present Electronically Signed On 09-18-2023 23:13:58 CDT by Quincy Payne M.D. [id number]
[2023-09-18] MEDS: enoxaparin 40 mg/0.4 mL Syringe SUBCUT (19:22)
[2023-09-18] MEDS: hyDRALAzine 20 mg/mL INJ 1 mL 10 MG IVP (19:23)
[2023-09-18 19:40] LABS: Troponin 5 6HR 17.46 ng/L (0-15); Troponin 5 6HR Delta 1.46 ng/L (0-12)
--- NOTE | 2023-09-18 20:21 | USCV_ITS ---
Jason Huang Age: 73 Gender: M : 1950 Exam Date: 09/18/2023 20:58 Ordering Phys: Anthony Cruz MD ([email or web address]) Technologist: Nikko Ballesteros Exam Location: [facility] [place] Indication: afib BP: 133 / 81 HR: 90 Rhythm: Sinus Technical Quality: Adequate MEASUREMENTS (Male / Female) Normal Values 2D ECHO LVOT Diameter 2.0 cm LV Ejection Fraction MOD 2C 65.2 % LV Ejection Fraction 2C AL 65.6 % LA Diameter 3.6 cm RA Systolic Volume 4C AL 75.8 ml RA Systolic Volume 4C MOD 75.6 ml LA Sys Volume AL 90.6 cm cubed LA Sys Volume Index AL 49.0 cm cubed/m squared Aorta at Sinotubular Diameter 2.5 cm IVC Diameter 2.2 cm M-MODE LA Ao Ratio MM 1.5 AV Cusp Separation MM 1.8 cm DOPPLER AV Peak Velocity 175.0 cm/s LVOT Peak Velocity 109.0 cm/s AV Area Cont Eq vti 2.1 cm squared AV Area Cont Eq pk 2.0 cm squared MV Peak Velocity 106.0 cm/s MV Area PHT 4.1 cm squared Mitral E to A Ratio 24.0 TV Peak Velocity 376.3 cm/s TR Peak Velocity 418.0 cm/s TR Peak Gradient 69.9 mmHg TR Mean Velocity 300.0 cm/s TR Mean Gradient 41.5 mmHg TR Velocity Time Integral 110.9 cm PV Peak Velocity 107.7 cm/s RV Ejection Time 0.3 s FINDINGS Left Ventricle Normal left ventricular size and systolic function, EF 65%. No regional wall motion abnormalities. Right Ventricle The right ventricle is normal in size and function. Right Atrium Mildly increased right atrial size. Left Atrium Moderately increased left atrial size. Mitral Valve Mild-moderate mitral valve regurgitation. Aortic Valve No gross abnormalities noted Tricuspid Valve Moderate tricuspid valve regurgitation. Estimated pulmonary artery peak systolic pressure 42 mm of mercury Pulmonic Valve No gross abnormalities noted Pericardium Normal pericardium without effusion. Aorta Normal ascending aorta dimension. IVC Normal inferior vena cava. CONCLUSIONS Normal left ventricular size and systolic function, EF 65%. No regional wall motion abnormalities. Moderately increased left atrial size. Mildly increased right atrial size. Mild-moderate mitral valve regurgitation. Moderate tricuspid valve regurgitation. Estimated pulmonary artery peak systolic pressure 42 mm of Hg. There is no pericardial effusion. There are no intracardiac masses. No similar previous studies are available for comparison Dr Anthony Cruz MD [facility] (Electronically Signed) Final Date: 18 September 2023 22:16 S
[2023-09-18] MEDS: enoxaparin 30 mg/0.3 mL Syringe SUBCUT (21:21)
[2023-09-19] VITALS (58 sets, daily range): BP systolic 111–201; BP diastolic 59–130; PULSE 48–88; RESP 6–33; TEMP 37–37.2; O2SAT 82–99
--- NOTE | 2023-09-19 05:09 | PC.NURSE ---
This RN agrees with all documentations and administrations made by SN Miri for this patient.
[2023-09-19 05:21] LABS: Positive M 1
[2023-09-19 05:23] LABS: Basophils # 0.1 10^3/uL (0.0-0.1); Basophils % 1.1 %; Eosinophils # 0.1 10^3/uL (0.0-0.8); Eosinophils % 2.2 %; Hematocrit 42.5 % (37-53); Lymphocytes # 1.5 10^3/uL (0.8-4.8); Lymphocytes % 27.3 %; Mean Corpuscular HGB Conc 32.2 g/dL (30-55); Mean Corpuscular Hemoglobin 30.3 pg (27-33); Mean Platelet Volume 10.1 fL (7.4-10.4); Monocytes # 0.5 10^3/uL (0.2-0.9); Monocytes % 9.7 %; Neutrophils % 59.5 %; Nucleated Red Blood Cells % 0 %; Platelet Count 195 10^3/cmm (157-399); Red Blood Count 4.52 10^6/uL (3.85-5.65); Red Cell Distribution Width 13.5 % (12.1-15.1); White Blood Count 5.54 10^3/uL (3.29-11.43)
[2023-09-19 05:51] LABS: Alanine Aminotransferase 137 U/L (0-41); Albumin Level 4.2 g/dL (3.5-5.2); Alkaline Phosphatase 124 U/L (40-130); Anion Gap 11.9 (5-19); Aspartate Amino Transferase 48 U/L (0-40); Blood Urea Nitrogen 26 mg/dL (8-23); Calcium 9.5 mg/dL (8.5-10.5); Carbon Dioxide 27 mmol/L (22-29); Chloride 108 mmol/L (98-107); Creatinine Clr Calc Pharmacy 64.5623; Globulin 2.8 g/dL (1.3-4.6); Glucose 117 mg/dL (65-115); Osmolality Calculated 302 mOsm/kg (285-295); Potassium 3.9 mmol/L (3.5-5.1); Sodium 143 mmol/L (136-145); Total Bilirubin 0.5 mg/dL (0.15-1.2)
[2023-09-19] MEDS: lisinopril 10 mg Tablet PO (08:27)
[2023-09-19] MEDS: magnesium lactate 84 mg Tablet PO ×2 (08:27→17:39)
[2023-09-19] MEDS: hydroCHLOROthiazide 25 mg Tablet 12.5 MG PO (08:27)
[2023-09-19] MEDS: enoxaparin 80 mg/0.8 mL Syringe 70 MG SUBCUT ×2 (08:38→19:59)
--- NOTE | 2023-09-19 08:56 | P.PN_ITS ---
Subjective 2 Subjective: Patient had echocardiogram done yesterday which revealed normal LV size ejection fraction. No significant wall motion normalities. Biatrial enlargement. Moderate tricuspid with mild to moderate mitral regurgitation. Mild pulmonary hypertension. Patient continues to have frequent PVCs in the form of bigeminy, couplets, triplets, bradycardia with the baseline atrial flutter/fibrillation. Patient had features of paroxysmal nocturnal dyspnea. Medications: Medication Review Details: Current Medications Acetaminophen (Acetaminophen 325 Mg Tablet) 650 mg PO Q6H PRN PRN Reason: MILD PAIN Aspirin (Aspirin 325 Mg Tablet) 325 mg PO ONCE ONE Stop: 09/19/23 08:56 Diphenhydramine HCl (Diphenhydramine 50 Mg Capsule) 50 mg PO ONCE ONE Stop: 09/19/23 08:56 Enoxaparin Sodium (Enoxaparin 80 Mg/0.8 Ml Syringe) 70 mg SUBCUT Q12H [facility] Last Admin: 09/19/23 08:38 Dose: 70 mg Hydralazine HCl (Hydralazine 20 Mg/Ml Inj 1 Ml) 10 mg IVP Q8H PRN PRN Reason: Blood pressure > 180/100 Last Admin: 09/18/23 19:23 Dose: 10 mg Hydrochlorothiazide (Hydrochlorothiazide 25 Mg Tablet) 12.5 mg PO DAILY [facility] Last Admin: 09/19/23 08:27 Dose: 12.5 mg Sodium Chloride (Sodium Chloride 0.9%) 1,000 mls @ 50 mls/hr IV .Q20H ONE Stop: 09/20/23 04:54 Lisinopril (Lisinopril 10 Mg Tablet) 10 mg PO DAILY [facility] Last Admin: 09/19/23 08:27 Dose: 10 mg Magnesium Lactate (Magnesium Lactate 84 Mg Tablet) 84 mg PO BID [facility] Last Admin: 09/19/23 08:27 Dose: 84 mg Ondansetron HCl (Ondansetron 2 Mg/Ml Sdv 2 Ml) 4 mg IVP Q6H PRN PRN Reason: NAUSEA AND VOMITING Potassium Chloride (Potassium Chloride Er 20 Meq Tablet) 20 meq PO DAILY [facility] Vitals/I&O/Wt Last Vital Signs Temp 98.6 F 09/19/23 05:00 Pulse 63 09/19/23 08:00 Resp 17 09/19/23 08:00 BP 161/82 09/19/23 08:00 Pulse Ox 99 09/19/23 08:00 O2 Del Method Room Air 09/19/23 08:00 09/18/23 09/19/23 09/19/23 22:59 06:59 14:59 Output Total 275 / 275 Balance -275 / -275 Weight last 48 hrs Weight 154 lb 14.4 oz Weight 156 lb 3.2 oz Weight 160 lb Physical Exam 2 Narrative: GENERAL: The patient is alert and oriented times three. Not in any acute distress. HEENT: No significant pallor, icterus or lymphadenopathy.Oral cavity: There are no mucous membrane lesions. NECK: Trachea appears to be central. No masses noted. No JVD or thyromegaly appreciated. RESPIRATORY: Chest is symmetrical. No intercostals muscle retraction or any accessory muscle activation. There is no chest wall tenderness. Breath sounds are heard bilaterally. Fine Rales at the bases bilaterally.. No evidence of any consolidation. BREASTS: Deferred. HEART: The heart sounds are normal. No S3 or S4. No significant murmurs. No pericardial rub ABDOMEN: No vessel pulsations or distention. No tenderness. No organomegaly appreciated. Bowel sounds are normally heard. : Deferred. RECTAL: Deferred. LYMPHATIC: No lymphadenopathy noted in the neck. EXTREMITIES: No edema or cyanosis. No clubbing. MUSCULOSKELETAL: No acute joint deformities or swelling SKIN: There are no significant rashes or ecchymosis NEUROPSYCHIATRIC: The patient is alert and oriented x3. Appears to be in a good mood. No tremors or rigidity noted. Data 09/19/23 04:51 09/19/23 04:51 Other Labs: Laboratory Last Values WBC 5.54 10^3/uL (3.29-11.43) 09/19/23 04:51 RBC 4.52 10^6/uL (3.85-5.65) 09/19/23 04:51 Hgb 13.70 g/dL (11.27-16.99) 09/19/23 04:51 Hct 42.5 % (37-53) 09/19/23 04:51 MCV 94.0 fl (82-101) 09/19/23 04:51 MCH 30.3 pg (27-33) 09/19/23 04:51 MCHC 32.2 g/dL (30-55) 09/19/23 04:51 RDW 13.5 % (12.1-15.1) 09/19/23 04:51 Plt Count 195 10^3/cmm (157-399) 09/19/23 04:51 MPV 10.1 fL (7.4-10.4) 09/19/23 04:51 Neut % (Auto) 59.5 % 09/19/23 04:51 Lymph % (Auto) 27.3 % 09/19/23 04:51 [place] % (Auto) 9.7 % 09/19/23 04:51 Eos % (Auto) 2.2 % 09/19/23 04:51 Baso % (Auto) 1.1 % 09/19/23 04:51 Neut # (Auto) 3.30 10^3/uL (1.8-7.7) 09/19/23 04:51 Lymph # (Auto) 1.5 10^3/uL (0.8-4.8) 09/19/23 04:51 [place] # (Auto) 0.5 10^3/uL (0.2-0.9) 09/19/23 04:51 Eos # (Auto) 0.1 10^3/uL (0.0-0.8) 09/19/23 04:51 Baso # (Auto) 0.1 10^3/uL (0.0-0.1) 09/19/23 04:51 Nucleated RBC % (auto) 0 % 09/19/23 04:51 Nucleated RBCs # 0.0 /100WBC 09/19/23 04:51 Sodium 143 mmol/L (136-145) 09/19/23 04:51 Potassium 3.9 mmol/L (3.5-5.1) 09/19/23 04:51 Chloride 108 mmol/L (98-107) H 09/19/23 04:51 Carbon Dioxide 27 mmol/L (22-29) 09/19/23 04:51 Anion Gap 11.9 (5-19) 09/19/23 04:51 BUN 26 mg/dL (8-23) H 09/19/23 04:51 Creatinine 1.0 mg/dL (0.7-1.2) 09/19/23 04:51 GFR Calculation Not Reportable 09/19/23 04:51 Glucose 117 mg/dL (65-115) H 09/19/23 04:51 Calculated Osmolality 302 mOsm/kg (285-295) H 09/19/23 04:51 Calcium 9.5 mg/dL (8.5-10.5) 09/19/23 04:51 Magnesium 2.0 mg/dL (1.7-2.3) 09/19/23 04:51 Total Bilirubin 0.5 mg/dL (0.15-1.2) 09/19/23 04:51 AST 48 U/L (0-40) H 09/19/23 04:51 ALT 137 U/L (0-41) H 09/19/23 04:51 Alkaline Phosphatase 124 U/L (40-130) 09/19/23 04:51 Troponin T Baseline 16 ng/L (0-15) H 09/18/23 13:29 Troponin T 120 Minute 17.03 ng/L (0-15) H 09/18/23 15:46 Delta Troponin T 1.03 ABS# (0-10) 09/18/23 15:46 Troponin T Hi Sens 6Hr 17.46 ng/L (0-15) H 09/18/23 19:11 Troponin T Hi Sens 6Hr Delta 1.46 ng/L (0-12) 09/18/23 19:11 NT-Pro-B Natriuret Pep 1768 pg/mL (0-125) H 09/18/23 13:29 Total Protein 7.0 g/dL (6.6-8.7) 09/19/23 04:51 Albumin 4.2 g/dL (3.5-5.2) 09/19/23 04:51 Globulin 2.8 g/dL (1.3-4.6) 09/19/23 04:51 TSH 1.61 uIU/mL (0.27-4.20) 09/18/23 13:29 Other data: Echocardiogram from yesterday Normal left ventricular size and systolic function, EF 65%. No regional wall motion abnormalities. Moderately increased left atrial size. Mildly increased right atrial size. Mild-moderate mitral valve regurgitation. Moderate tricuspid valve regurgitation. Estimated pulmonary artery peak systolic pressure 42 mm of Hg. There is no pericardial effusion. There are no intracardiac masses. No similar previous studies are available for comparison A&P Assessment and plan (1) Acute on chronic diastolic (congestive) heart failure: Patient has features of mild heart failure. Most likely acute on chronic diastolic heart failure. He may be treated with IV diuretic-Lasix 40 mg now and as needed. Supplement potassium. (2) Ventricular arrhythmia: Etiology is not clear. For further evaluation, a coronary angiogram would be appropriate. Based on the results, further recommendations will be made (3) Atrial fibrillation/flutter: Patient needs to be on long-term oral anticoagulation because of high thromboembolic risk. May hold the Lovenox for the time being (4) Bradycardia, severe sinus: Review of the EKG showed a atrial fibrillation with a frequent PVCs in the form of bigeminy and post PVC pauses. I will hold off on any AV liezth blocking agents at this time. I may add some Mag-Tab SR 84 mg 2 tablets daily (5) HTN (hypertension): The blood pressure is elevated to 170/90 this morning. I may start him on amlodipine 5 mg p.o. now and daily. Qualifiers: Hypertension type: primary hypertension Qualified Code(s): I10 - Essential (primary) hypertension Plan Procedure echocardiogram was discussed with the patient. Lasix 40 mg IV now. Potassium 20 mill equivalent p.o. now Amlodipine 5 mg p.o. now and daily Discussed with the patient and the family about the cardiac catheterization, risks and benefits. The risk of bleeding, hematoma, vascular injury, myocardial infarction, myocardial perforation, malignant cardiac arrhythmias ,CVA, renal failure and other concomitant complications were explained in detail. Patient understood this well and consented to proceed Patient angiogram findings, further recommendations will be made Attestations 2 Medical Necessity Statement*: Patient requires continued hospital stay for close monitoring and further management Coding Level of Care Code Acute Code for [facility] Fwd Diagnoses Acute on chronic diastolic (congestive) heart failure I50.33 Ventricular arrhythmia I49.9 Atrial fibrillation/flutter I48.91; I48.92 Bradycardia, severe sinus R00.1 Primary hypertension I10 Hypertension type: primary hypertension
[2023-09-19] MEDS: diphenhydrAMINE 50 mg Capsule PO (09:20)
[2023-09-19] MEDS: potassium chloride ER 20 mEq Tablet PO (09:21)
[2023-09-19] MEDS: aspirin 325 mg Tablet PO (09:21)
[2023-09-19] MEDS: FUROsemide 10 mg/mL SDV 4mL 40 MG IVP (09:21)
[2023-09-19] MEDS: amlodipine 5 mg Tablet PO (09:21)
[2023-09-19] MEDS: sodium chloride 0.9% 1,000 ML 50 ML IV (09:22)
--- NOTE | 2023-09-19 09:40 | XACV_ITS ---
Exam Room: 2 Ht: 173 cm Wt: 70 kg BSA: 1.84 m2 Gender: Male : 1950 Any Known Allergies: No known allergies Exam Priority: Routine Procedure(s): Procedure Description: Diagnostic procedure Procedure Description: PCI procedure Procedure Description: Left Heart Catheterization Procedure Description: Coronary IVUS Procedure Description: Drug Eluting Coronary Stent Procedure Description: PTCA Procedure Description: Coronary Angiography Procedure Description: Pressure Wire Anthony BROOKE; Diagnostic Cath Status: Elective Diagnostic Findings * The left main is a medium caliber vessel with no significant stenotic lesions. * The left anterior descending artery is a medium caliber vessel which appears to wraparound the LV apex minimally. The mid LAD was found to have a proximal around 70% stenosis. The second diagonal branch coming out of this area was found to have an ostial around 50% stenosis. No other significant stenotic lesions were noted. * The left circumflex artery is a medium caliber codominant vessel with no significant stenotic lesion. It appears to gives of a PDA branch. * The right coronary artery is a medium caliber codominant vessel which appears to bifurcate proximally giving off a PLV branch and a's relatively small caliber PDA branch. No significant history of lesions were noted. PCI Status: Elective PCI Indication: Other Interventional Findings * PROCEDURE DETAIL: We engaged left main artery with XB 3.5 guide catheter. IV heparin was administered to maintain anticoagulation. After normalization, IFR wire was advanced into the distal vessel. However patient was in atrial fibrillation and had frequent PVCs. Significant artifact was noted. After multiple attempts, IFR value of 0.91 was obtained however it was with significant artifacts. We then performed FFR. Had similar issues of artifact and value of 0.83 was obtained. However given limitation of this study with artifact and multiple attempts to obtain readings, we decided to confirm stenosis with IVUS. On IVUS it was clearly severe stenosis with MLA of 2.1mm2. We then proceeded with PCI. Lesion was predilated with 2.5 x 12 mm semicompliant. This was followed with placement of 3.0x15mm Resolute james GUANAKITO. We then performed IVUS that showed underexpansion in the mid segment. We post dilated the stent with 3.0e38pyVC balloon. At this time final angiogram was performed that showed excellent stent expansion, no residual stenosis and EVERETT-3 flow. Guidewire and guide catheter were removed.. * Mid Left Anterior Descendin% stenosis treated with a AB TREK 2.50X12 RX BALLOON, ERNESTO Cheng JAMES 3.0X15 GUANAKITO, and MDFatuma HAN EUPHORA RX [id number] BALLOON. 0% residual stenosis, EVERETT: 3 flow. Conclusions 1. 73-year-old white male, is admitted to hospital with complaints of dyspnea on exertion, episodes of bradycardia. He was found to be in atrial fibrillation with a slow ventricular response rate and frequent PVCs in the form of bigeminy, couplets and triplets. His LV ejection fraction was normal by echocardiogram. In view of his ongoing arrhythmia and the presenting symptoms, in order to further evaluate his cardiac status, a coronary angiogram was recommended. Patient underwent left heart catheterization with left and right coronary angiogram today. The findings are as follows. 2. Moderately severe mid LAD disease. Elevated LVEDP of 19 mmHg. No severe lesions in the left main, circumflex artery and right coronary artery. The left circumflex artery appears to be codominant. 3. I reviewed and discussed the cardiac catheterization findings with Dr. Payne. It was thought to be appropriate to consider IFR of the LAD lesion and possible PCI. Dr. Payne concurred with this plan and took over further management of this patient at this point. 4. iFR and FFR had limitation as with wire advancement after normalization, patient had significant artifact and multiple attempts were needed to obtain values. Patient was in atrial fibrillation and also had frequent PVCs. Given this limitation, we decided to perform IVUS to confirm the degree of stenosis. MLA was severely reduced with value of 2.1 mm2. Patient underwent successful revascularization of mid LAD with 1 stent. 5. Mid Left Anterior Descending was treated with a Balloon, Drug Eluting Stent, and Balloon. Recommendations * Continue anticoagulation and add Plavix. * High intensity statin therapy. * Outpatient cardiology follow-up in 2 to 4 weeks. Interventional RX Recommendation: PCI w/o planned CABG Diagnostic RX Recommendation: PCI w/o planned CABG Anticoagulation: Heparin LV EDP: 19 mmHg Left Ventriculography Findings: * LV gram was not performed since the LV ejection fraction was found to be normal by echocardiogram. Pressures Phase:Rest AO : 169 / 85 ( 121 ) @ 11:15:00 AM 134 / 92 ( 101 ) @ 11:24:00 AM 132 / 84 ( 100 ) @ 11:24:00 AM 170 / 79 ( 122 ) @ 12:07:00 PM LV : 127 / 9 / 19 @ 11:24:00 AM 138 / 9 / 19 @ 11:24:00 AM Valves Phase:DefaultPhase AV : 7.0 @ 11:16:59 AM 7.0 @ 11:16:59 AM AV Mean Gradient: 9.0 @ 11:16:59 AM 9.0 @ 11:16:59 AM Clinical Evaluation EBL: 5mL-10mL Procedural Details Pre-Procedure Time Out. Identified patient by full name and date of as verbalized by the patient/guarantor. Does the consent match the physician's order: Yes. Accurate & Complete Informed Consent: Yes. Inpatient/Outpatient History & Physical on Chart: Yes. If H&P is completed, is and addenduem needed: No; If yes, is the addendum complete: N/A. Visualize and Verify Site with Patient/Guarantor: N/A. Relevant Radiology Images available: Yes. Pre-op teaching completed and patient verbalized understanding. The risks, benefits, and alternatives of sedation and/or procedure were discussed by physician. The patient agrees to continue. Procedure started. Physician arrived. [facility] Clinical Fraility Score: 3: Managing Well. Medical Lab Assistant Indications: Other. Chest Pain Symptom Assessment: Non-anginal Chest Pain. Correct patient, site and procedure confirmed by cath team. PERRLA. Strong, equal hand global marketing coordinator bilaterally. Lungs clear x 5 lobes. IV Site on Arrival: 18 gauge in the left anticubital. IV Fluids: 0.9% NaCl at KVO. 0 mL infused prior to research laboratory specialist. Oxygen started at 2liters/min via nasal canula. right groin was prepped with chloroprep then draped in the usual sterile fashion. right radial was prepped with chloroprep then draped in the usual sterile fashion. Baseline sample Acquired. HR: 85 BPM. Physician scrubbed in. Immediate Pre-Procedure Time Out. Correct Patient: Yes; Correct Procedure: Yes; Correct Site: Yes; Correct Patient Position: Yes; Correct Supplies: Yes; Dried Flammable Prep: Yes; Blood Products Available: N/A;. Lidocaine 1% infiltrated to the right radial. Arterial access obtained. A 5 bahamian Jona catheter in over wire. Multiple views taken of left coronary artery. Catheter removed over the exchange wire. A 5 bahamian JR4 catheter in over wire. Multiple views taken of right coronary artery. Dr. Payne arrived. Pullback taken: LV 138/9,19; AO 134/92(101); Mean: 9mmHg, Peak to Peak: 7mmHg, SEP: 17sec/min; HR: 71 BPM; SpO2: 98%. Catheter removed over the exchange wire. Physician review of cine films. Dr. Payne scrubbed in. 6 bahamian XB 3 guide catheter was inserted over the wire. AP Pads placed on the patient. IFR guidewire was advanced through the guide catheter to lesion in the mid LAD. IFR results: 0.91. FFR Results: 0.83. Adenosine turned off. IVUS catheter inserted OTW and advanced to the mid LAD. IVUS measurements obtained. IVUS catheter out OTW. Runthrough guidewire was advanced through the guide catheter to lesion in the mid LAD. FFR wire out. Balloon inserted to lesion in the mid LAD. Inflation number : 1 A AB TREK 2.50X12 RX BALLOON was prepped and advanced across the Mid LAD , then inflated to 12 JESSE for 0:10 seconds. Inflation number: 2 The AB TREK 2.50X12 RX BALLOON was reinflated across the Mid LAD, to 12 JESSE for 0:05 seconds. Balloon out. Inflation Number : 3 A ERNESTO Cheng JAMES 3.0X15 GUANAKITO -Lot Number# [id number] EXP: 02/22/2024 was prepped and advanced across the Mid LAD. The stent was deployed at 12 JESSE for 0:16 seconds. Stent balloon out over wire. IVUS catheter inserted OTW and advanced to the mid LAD. IVUS measurements obtained. IVUS catheter out OTW. Inflation number : 4 A ERNESTO HAN EUPHORA RX [id number] BALLOON was prepped and advanced across the Mid LAD , then inflated to 16 JESSE for 0:09 seconds. Balloon out. Results checked. Wire out. Guide catheter out. A TR Band was successful obtaining hemostatsis at the Right Radial artery insertion site. Post Procedure: Pulses reassessed and unchanged. PERRLA. Strong, equal hand global marketing coordinator bilaterally. No VTE prophylaxis required. Medication's Wasted: Lidocaine 1% = 15 mL. Medication's Wasted: Nitro = 49.6 mg. Medication's Wasted: Heparin = 4000 units. Total IV fluids: 76 mL. Complications: None. Estimated blood loss: 5mL-10mL. Responsiveness - Normal response to verbal stimuli; alert and oriented, PERRLA. Airway - Unaffected, no intervention required; spontaneous ventilation. Post-op diagnosis: Mid LAD stent. Circulation: W/N/L, pulses unchanged. Nausea/Vomiting: No. Procedure completed. Vital chart was stopped. Patient transferred by bed to 1st floor. Access Site Site: Right Radial artery Sheath Size: 6 Fr Hemostasis Method: TR Band Hemostasis Success: Successful Procedure Medications Start: 9:59 AM Stop: 9:59 AM Medication: Versed Amount: 1 mg Route: I.V. Start: 10:00 AM Stop: 10:00 AM Medication: Fentanyl Amount: 50 mcg Route: I.V. Start: 10:10 AM Stop: 10:10 AM Medication: Nitrogylcerin Amount: 200 mcg Route: I.A. Start: 10:10 AM Stop: 10:10 AM Medication: Verapamil Amount: 5 mg Route: I.A. Start: 10:18 AM Stop: 10:18 AM Medication: Versed Amount: 1 mg Route: I.V. Start: 10:19 AM Stop: 10:19 AM Medication: Heparin Amount: 2000 units Route: I.V. Start: 10:33 AM Stop: 10:33 AM Medication: Nitrogylcerin Amount: 200 mcg Route: I.A. Start: 10:47 AM Stop: 10:47 AM Medication: Adenosine (Adenocard) Amount: 588 ml/hr Route: I.V. drip Start: 10:53 AM Stop: 10:53 AM Medication: Fentanyl Amount: 25 mcg Route: I.V. Start: 10:59 AM Stop: 10:59 AM Medication: Fentanyl Amount: 25 mcg Route: I.V. Start: 11:10 AM Stop: 11:10 AM Medication: Plavix Amount: 600 mg Route: P.O. I, the attending physician, have reviewed and verified all procedure medications. Yes, all medications given per verbal order History/Risk Factors Hypertension: Yes Dyslipidemia: No Peripheral Arterial Disease (PAD): No Myocardial Infarction (IN): No Obesity: No Renal Disease: No Tobacco Use: Never Prior Interventions PCI: No CABG: No Valve Surgery: No Report Signatures Interventional Workflow Finalized by Quincy Payne MD on 09/22/2023 08:20 AM Diagnostic Workflow Finalized by Dr Anthony Cruz MD [facility] on 09/19/2023 11:52 AM
--- NOTE | 2023-09-19 13:19 | P.PN_ITS ---
Subjective 2 Subjective: No acute events overnight. Patient continues to have on/off frequent PVCs, bradycardia and remains in atrial fibrillation/flutter. He has no new complaints today. He denies chest pain, SOB. . Medications: Reviewed: Yes Medication Review Details: Current Medications Acetaminophen (Acetaminophen 325 Mg Tablet) 650 mg PO Q6H PRN PRN Reason: MILD PAIN Aspirin (Aspirin 325 Mg Tablet) 325 mg PO ONCE ONE Stop: 09/19/23 08:56 Diphenhydramine HCl (Diphenhydramine 50 Mg Capsule) 50 mg PO ONCE ONE Stop: 09/19/23 08:56 Enoxaparin Sodium (Enoxaparin 80 Mg/0.8 Ml Syringe) 70 mg SUBCUT Q12H [facility] Last Admin: 09/19/23 08:38 Dose: 70 mg Hydralazine HCl (Hydralazine 20 Mg/Ml Inj 1 Ml) 10 mg IVP Q8H PRN PRN Reason: Blood pressure > 180/100 Last Admin: 09/18/23 19:23 Dose: 10 mg Hydrochlorothiazide (Hydrochlorothiazide 25 Mg Tablet) 12.5 mg PO DAILY [facility] [place] Last Admin: 09/19/23 08:27 Dose: 12.5 mg Sodium Chloride (Sodium Chloride 0.9%) 1,000 mls @ 50 mls/hr IV .Q20H ONE Stop: 09/20/23 04:54 Lisinopril (Lisinopril 10 Mg Tablet) 10 mg PO DAILY [facility] [place] Last Admin: 09/19/23 08:27 Dose: 10 mg Magnesium Lactate (Magnesium Lactate 84 Mg Tablet) 84 mg PO BID [facility] [place] Last Admin: 09/19/23 08:27 Dose: 84 mg Ondansetron HCl (Ondansetron 2 Mg/Ml Sdv 2 Ml) 4 mg IVP Q6H PRN PRN Reason: NAUSEA AND VOMITING Potassium Chloride (Potassium Chloride Er 20 Meq Tablet) 20 meq PO DAILY [facility] [place] Vitals/I&O/Wt Last Vital Signs Temp 98.6 F 09/19/23 05:00 Pulse 56 L 09/19/23 11:31 Resp 19 H 09/19/23 11:31 BP 153/66 09/19/23 11:31 Pulse Ox 96 09/19/23 11:31 O2 Del Method Room Air 09/19/23 11:31 09/18/23 09/19/23 09/19/23 22:59 06:59 14:59 Output Total 275 / 275 275 / 275 Balance -275 / -275 -275 / -275 Weight last 48 hrs Weight 70.261 kg Weight 70.851 kg Weight 72.575 kg Physical Exam 2 Const: COMMON NORMALS: no acute distress, patient oriented x3 and alert HENMT: COMMON NORMALS: normocephalic, atraumatic, external ears normal, Normal external nose present, moist oral mucous membranes and oropharynx normal HEAD & SCALP: normocephalic and atraumatic NOSE: Normal external nose present E XTERNAL EAR: Yes external ears normal Eye: COMMON NORMALS: Equal, round and reactive pupils present, EOMs intact bilaterally, conjunctivae normal and no scleral icterus CONJUNCTIVA: Yes conjunctivae normal PUPIL: Yes Equal, round and reactive pupils present Neck/C-Spine: COMMON NORMALS: full ROM, no lymphadenopathy and no JVD Chest: COMMONS NORMALS: normal inspection of the chest Resp: COMMON NORMALS: normal respiratory effort and clear to auscultation bilaterally AUSCULTATION: clear to auscultation bilaterally OTHER: No wheezes or crcakles Cardio: COMMON NORMALS: no JVD, regular rate, regular rhythm, S1 normal heart sound present, S2 normal heart sound present and Peripheral pulses 2+ throughout RATE: regular rate RHYTHM: regular rhythm and abnormal rhythm HEART SOUNDS: S1 normal heart sound present and S2 normal heart sound present P ERIPHERAL PULSES: Peripheral pulses 2+ throughout OTHER: S1, s2, irregular rate and rhythm , bradycardia GI: COMMON NORMALS: Normal to inspection, nondistended, normoactive bowel sounds present, Soft to palpation and non-tender PALPATION: Yes Soft to palpation Extremity: COMMON NORMALS: normal to inspection and no pedal edema Neuro: COMMON NORMALS: patient oriented x3 SENSORIUM/ORIENTATION: Yes alert OTHER: No gross focal deficits Data 09/19/23 04:51 09/19/23 04:51 A&P Assessment and plan (1) Bradycardia, unspecified: (2) Atrial fibrillation/flutter: (3) Elevated liver transaminase level: (4) Atypical chest pain: (5) HTN (hypertension): Qualifiers: Hypertension type: primary hypertension Qualified Code(s): I10 - Essential (primary) hypertension Plan # Asymptomatic bradycardia #Atrial flutter #Frequent PVCs -Patient continues to have frequent PVCs noted to have bradycardia at the outside clinic prior to presentation -He continues to have on /off PVCs, bradycardia . He is in A. flutter/ fib -His [id number] score is at least 2. He is currently on therapeutic lovenox -Will continue telemetry monitoring # Chest pain #CAD -Patient evaluated by cardiology and had cardiac cath done with successful PCI -He will continue antiplatelet therapy -Start statin -Check lipid panel #Acute Decompensated HF with preserved EF #Elevated BNP -Patient continues to report PND -He received IV lasix 40mg x 1 -Ct to monitor, strict i/o's . IV lasix as needed # History of hypertension -ct antihypertensives # Elevated transaminases -Unclear etiology, trending down -Patient reports alcohol use -Will check liver ultrasound Attestations 2 Medical Necessity Statement*: Patient to continue inpatient care today. He is s/p cardiac cath with PCI done. He requires continuous telemetry monitoring . Coding Level of Care Code Acute Code for [facility] Diagnoses Bradycardia, unspecified R00.1 Atrial fibrillation/flutter I48.91; I48.92 Elevated liver transaminase level R74.01 Atypical chest pain R07.89 Primary hypertension I10 Hypertension type: primary hypertension
--- NOTE | 2023-09-19 18:56 | PC.NURSE ---
Patient is s/p [facility] with right radial access. Dressing to site remains c,d,i with no s/s of bleeding or hematoma formation. Patient c/o mild tenderness upon palpation. Will continue to monitor. Reinforced site care teaching. Patient verbalized understanding. Will continue to monitor.
[2023-09-19] MEDS: aspirin 81 mg Chew Tablet PO (19:58)
[2023-09-19] MEDS: atorvastatin 40 mg Tablet PO (19:59)
[2023-09-20] VITALS: BP 110/65; PULSE 76; RESP 24; TEMP 37.2; O2SAT 95
[2023-09-20 04:00] VITALS: BP 107/62; PULSE 82; RESP 17; TEMP 37.2; O2SAT 95
[2023-09-20 04:49] VITALS: PULSE 86
[2023-09-20 05:07] LABS: Albumin Level 3.8 g/dL (3.5-5.2); Anion Gap 16.4 (5-19); Blood Urea Nitrogen 29 mg/dL (8-23); Calcium 8.8 mg/dL (8.5-10.5); Carbon Dioxide 24 mmol/L (22-29); Chloride 104 mmol/L (98-107); Creatinine Clr Calc Pharmacy 58.4226; Glucose 115 mg/dL (65-115); Phosphorus 3.5 mg/dL (2.5-4.5); Potassium 3.4 mmol/L (3.5-5.1); Sodium 141 mmol/L (136-145)
[2023-09-20 05:08] LABS: Cholesterol 155 mg/dL (0-200); HDL Cholesterol 47 mg/dL (60-100); LDL Cholesterol Calculated 89 mg/dL (50-129); LDL HDL Ratio 1.89 RATIO (0.00-3.22); Triglycerides 94 mg/dL (0-150)
--- NOTE | 2023-09-20 06:00 | USR_ITS ---
PROCEDURE INFORMATION: Exam: US Abdomen, Limited; Right Upper Quadrant Exam date and time: 09/20/2023 8:16 AM Age: 73 years old Clinical indication: Abnormal findings; Abnormal lab test; Elevated liver enzymes TECHNIQUE: Imaging protocol: Real time ultrasound of the abdomen with image documentation. Limited exam focused on the right upper quadrant. COMPARISON: No relevant prior studies available. FINDINGS: Liver: Grossly unremarkable. No focal liver lesion demonstrated. Gallbladder: Gallbladder is unremarkable, without wall thickening, stones or pericholecystic fluid. Biliary ducts: CBD is within normal limits measuring 5 mm maximal diameter Pancreas: Pancreas is inadequately visualized secondary to obscuration from adjacent bowel gas. Right kidney: Right kidney is 10.5 cm in length and grossly unremarkable. US/US liver [id number] IMPRESSION: Pancreas inadequately visualized. Otherwise, unremarkable RUQ ultrasound.
[2023-09-20 07:13] VITALS: BP 128/70; PULSE 75; RESP 17; TEMP 36.3; O2SAT 98
--- NOTE | 2023-09-20 09:01 | PM.PN ---
Subjective Subjective: The patient is feeling okay. He continues to have the flutter/fibrillation on the monitor with the frequent PVCs in the form of couplets and triplets. But he seems to be quite asymptomatic. He also has bradycardia. Medications: Medication Review Details: Current Medications Acetaminophen (Acetaminophen 325 Mg Tablet) 650 mg PO Q6H PRN PRN Reason: MILD PAIN Atorvastatin Calcium (Atorvastatin 40 Mg Tablet) 40 mg PO BEDTIME [facility] Last Admin: 09/19/23 19:59 Dose: 40 mg Clopidogrel Bisulfate (Clopidogrel 75 Mg Tablet) 75 mg PO DAILY [facility] Enoxaparin Sodium (Enoxaparin 80 Mg/0.8 Ml Syringe) 70 mg SUBCUT Q12H [facility] Last Admin: 09/19/23 19:59 Dose: 70 mg Hydralazine HCl (Hydralazine 20 Mg/Ml Inj 1 Ml) 10 mg IVP Q8H PRN PRN Reason: Blood pressure > 180/100 Last Admin: 09/18/23 19:23 Dose: 10 mg Hydrochlorothiazide (Hydrochlorothiazide 25 Mg Tablet) 12.5 mg PO DAILY [facility] Last Admin: 09/19/23 08:27 Dose: 12.5 mg Lisinopril (Lisinopril 10 Mg Tablet) 10 mg PO DAILY [facility] Last Admin: 09/19/23 08:27 Dose: 10 mg Magnesium Lactate (Magnesium Lactate 84 Mg Tablet) 84 mg PO BID [facility] Last Admin: 09/19/23 17:39 Dose: 84 mg Ondansetron HCl (Ondansetron 2 Mg/Ml Sdv 2 Ml) 4 mg IVP Q6H PRN PRN Reason: NAUSEA AND VOMITING Potassium Chloride (Potassium Chloride Er 20 Meq Tablet) 20 meq PO DAILY [facility] Last Admin: 09/19/23 09:21 Dose: 20 meq Tamsulosin HCl (Tamsulosin 0.4 Mg Capsule) 0.4 mg PO DAILY [facility] Vitals/I&O/Wt Last Vital Signs Temp 97.3 F L 09/20/23 07:13 Pulse 75 09/20/23 07:13 Resp 17 09/20/23 07:13 BP 128/70 09/20/23 07:13 Pulse Ox 98 09/20/23 07:13 O2 Del Method Room Air 09/20/23 07:13 09/19/23 09/20/23 09/20/23 22:59 06:59 14:59 Intake Total 1480 / 1480 Output Total 750 / 1025 Balance 730 / 455 Weight last 48 hrs Weight 154 lb 7 oz Weight 154 lb 7 oz Weight 154 lb 14.4 oz Weight 156 lb 3.2 oz Weight 160 lb Physical Exam Narrative: GENERAL: The patient is alert and oriented times three. Not in any acute distress. HEENT: No significant pallor, icterus or lymphadenopathy.Oral cavity: There are no mucous membrane lesions. NECK: Trachea appears to be central. No masses noted. No JVD or thyromegaly appreciated. RESPIRATORY: Chest is symmetrical. No intercostals muscle retraction or any accessory muscle activation. There is no chest wall tenderness. Breath sounds are heard bilaterally. Fine Rales at the bases bilaterally.. No evidence of any consolidation. BREASTS: Deferred. HEART: The heart sounds are normal. No S3 or S4. No significant murmurs. No pericardial rub ABDOMEN: No vessel pulsations or distention. No tenderness. No organomegaly appreciated. Bowel sounds are normally heard. : Deferred. RECTAL: Deferred. LYMPHATIC: No lymphadenopathy noted in the neck. EXTREMITIES: Minimal ecchymosis in the right wrist area. No hematoma. Good distal pulses. MUSCULOSKELETAL: No acute joint deformities or swelling SKIN: There are no significant rashes or ecchymosis NEUROPSYCHIATRIC: The patient is alert and oriented x3. Appears to be in a good mood. No tremors or rigidity noted. Data 09/19/23 04:51 09/20/23 04:14 Other Labs: Laboratory Last Values WBC 5.54 10^3/uL (3.29-11.43) 09/19/23 04:51 RBC 4.52 10^6/uL (3.85-5.65) 09/19/23 04:51 Hgb 13.70 g/dL (11.27-16.99) 09/19/23 04:51 Hct 42.5 % (37-53) 09/19/23 04:51 MCV 94.0 fl (82-101) 09/19/23 04:51 MCH 30.3 pg (27-33) 09/19/23 04:51 MCHC 32.2 g/dL (30-55) 09/19/23 04:51 RDW 13.5 % (12.1-15.1) 09/19/23 04:51 Plt Count 195 10^3/cmm (157-399) 09/19/23 04:51 MPV 10.1 fL (7.4-10.4) 09/19/23 04:51 Neut % (Auto) 59.5 % 09/19/23 04:51 Lymph % (Auto) 27.3 % 09/19/23 04:51 Garrett % (Auto) 9.7 % 09/19/23 04:51 Eos % (Auto) 2.2 % 09/19/23 04:51 Baso % (Auto) 1.1 % 09/19/23 04:51 Neut # (Auto) 3.30 10^3/uL (1.8-7.7) 09/19/23 04:51 Lymph # (Auto) 1.5 10^3/uL (0.8-4.8) 09/19/23 04:51 Garrett # (Auto) 0.5 10^3/uL (0.2-0.9) 09/19/23 04:51 Eos # (Auto) 0.1 10^3/uL (0.0-0.8) 09/19/23 04:51 Baso # (Auto) 0.1 10^3/uL (0.0-0.1) 09/19/23 04:51 Nucleated RBC % (auto) 0 % 09/19/23 04:51 Nucleated RBCs # 0.0 /100WBC 09/19/23 04:51 Sodium 141 mmol/L (136-145) 09/20/23 04:14 Potassium 3.4 mmol/L (3.5-5.1) L 09/20/23 04:14 Chloride 104 mmol/L (98-107) 09/20/23 04:14 Carbon Dioxide 24 mmol/L (22-29) 09/20/23 04:14 Anion Gap 16.4 (5-19) 09/20/23 04:14 BUN 29 mg/dL (8-23) H 09/20/23 04:14 Creatinine 1.1 mg/dL (0.7-1.2) 09/20/23 04:14 GFR Calculation Not Reportable 09/20/23 04:14 Glucose 115 mg/dL (65-115) 09/20/23 04:14 Calculated Osmolality 302 mOsm/kg (285-295) H 09/19/23 04:51 Calcium 8.8 mg/dL (8.5-10.5) 09/20/23 04:14 Phosphorus 3.5 mg/dL (2.5-4.5) 09/20/23 04:14 Magnesium 2.0 mg/dL (1.7-2.3) 09/19/23 04:51 Total Bilirubin 0.5 mg/dL (0.15-1.2) 09/19/23 04:51 AST 48 U/L (0-40) H 09/19/23 04:51 ALT 137 U/L (0-41) H 09/19/23 04:51 Alkaline Phosphatase 124 U/L (40-130) 09/19/23 04:51 Troponin T Baseline 16 ng/L (0-15) H 09/18/23 13:29 Troponin T 120 Minute 17.03 ng/L (0-15) H 09/18/23 15:46 Delta Troponin T 1.03 ABS# (0-10) 09/18/23 15:46 Troponin T Hi Sens 6Hr 17.46 ng/L (0-15) H 09/18/23 19:11 Troponin T Hi Sens 6Hr Delta 1.46 ng/L (0-12) 09/18/23 19:11 NT-Pro-B Natriuret Pep 1768 pg/mL (0-125) H 09/18/23 13:29 Total Protein 7.0 g/dL (6.6-8.7) 09/19/23 04:51 Albumin 3.8 g/dL (3.5-5.2) 09/20/23 04:14 Globulin 2.8 g/dL (1.3-4.6) 09/19/23 04:51 Triglycerides 94 mg/dL (0-150) 09/20/23 04:14 Cholesterol 155 mg/dL (0-200) 09/20/23 04:14 LDL Cholesterol, Calc 89 mg/dL (50-129) 09/20/23 04:14 HDL Cholesterol 47 mg/dL (60-100) L 09/20/23 04:14 LDL/HDL Ratio 1.89 RATIO (0.00-3.22) 09/20/23 04:14 Cholesterol/HDL Ratio 3.30 mg/dL (1.0-5.00) 09/20/23 04:14 TSH 1.61 uIU/mL (0.27-4.20) 09/18/23 13:29 A&P Assessment and plan (1) Atherosclerotic heart disease of [place] coronary artery with other forms of angina pectoris: Patient was found to have high-grade lesion in the mid LAD. He may be kept on the Plavix 75 mg p.o. daily. Also continue the Eliquis, starting tomorrow (2) Acute on chronic diastolic (congestive) heart failure: Patient responded to the Lasix well. I may switch him to p.o. Lasix 20 mg p.o. daily. Discontinue the HCTZ. Continue potassium 20 mg p.o. daily. (3) Ventricular arrhythmia: Probably not related to ischemia. Continue the magnesium for the time being. Because of the bradycardia, we may hold off on any AV lizeth blocking agents. (4) Atrial fibrillation/flutter: Patient needs to be on long-term oral anticoagulation because of high thromboembolic risk. May be started on Eliquis 5 mg p.o. twice daily, starting tomorrow (5) Bradycardia, severe sinus: Continue to hold off on the AV lizeth blocking agents. (6) HTN (hypertension): Blood pressure seems to be getting under control. Keep him on lisinopril 10 mg p.o. daily and amlodipine 5 mg p.o. daily. Discontinue hydralazine. Qualifiers: Hypertension type: primary hypertension Qualified Code(s): I10 - Essential (primary) hypertension Plan Patient will be seen at [facility] 1 week to be seen by the nurse practitioner Patient will be seen by me in 6 weeks in the office. Patient is advised to continue the medications as mentioned above. The importance of compliance to diet, medications and exercise were discussed. In the event of the patient developing chest pain ,unusual palpitations or any new symptoms, is advised to contact me or come to the hospital. Plavix 75 mg p.o. daily Eliquis 5 mg p.o. twice daily Lisinopril 10 mg p.o. daily Amlodipine 5 mg p.o. daily Lasix 20 mg p.o. daily Potassium 20 mg p.o. daily Lipitor 40 mg p.o. daily Discussed with the patient in detail the importance of lifestyle modification, compliance to diet and medications. Patient and the family understood this well Discussed my recommendations with Dr. Edwards Attestations Medical Necessity Statement*: Disposition as per the primary Coding Level of Care Code 98433 Diagnoses Atherosclerotic heart disease of [place] coronary artery with other forms of angina pectoris I25.118 Acute on chronic diastolic (congestive) heart failure I50.33 Ventricular arrhythmia I49.9 Atrial fibrillation/flutter I48.91; I48.92 Bradycardia, severe sinus R00.1 Primary hypertension I10 Hypertension type: primary hypertension
[2023-09-20] MEDS: potassium chloride ER 20 mEq Tablet 40 MEQ PO (09:21)
[2023-09-20] MEDS: hydroCHLOROthiazide 25 mg Tablet 12.5 MG PO (09:21)
[2023-09-20] MEDS: tamsulosin 0.4 mg Capsule 0.400000000000000022 MG PO (09:21)
[2023-09-20] MEDS: potassium chloride ER 20 mEq Tablet PO (09:22)
[2023-09-20] MEDS: magnesium lactate 84 mg Tablet PO (09:22)
[2023-09-20] MEDS: clopidogrel 75 mg Tablet PO (09:22)
[2023-09-20] MEDS: lisinopril 10 mg Tablet PO (09:23)
[2023-09-20 11:38] VITALS: BP 130/60; PULSE 67; RESP 15; TEMP 36.7; O2SAT 92
[2023-09-20 12:13] VITALS: BP 130/60; PULSE 67; RESP 15; TEMP 36.7; O2SAT 92
--- NOTE | 2023-09-20 12:14 | PM.DCS ---
Discharge Providers Date of Admission: 09/18/23 17:14 Date of Discharge: September 20, 2023 Attending Provider at Admission: Ivet Wilson MD Attending Provider at Discharge: Ivet Wilson MD Consults: Cardiology Primary Care Provider: JOSE LUIS Lyons Diagnoses at Discharge Discharge Diagnosis (1) Atherosclerotic heart disease of [place] coronary artery with other forms of angina pectoris: Status: Acute (2) Acute on chronic diastolic (congestive) heart failure: Status: Acute (3) Ventricular arrhythmia: Status: Acute (4) Atrial fibrillation/flutter: Status: Acute (5) Bradycardia, severe sinus: Status: Acute (6) HTN (hypertension): Status: Acute Qualifiers: Hypertension type: primary hypertension Qualified Code(s): I10 - Essential (primary) hypertension Reason for Visit Reason for Visit: elevated bp Hospital Course Hospital Course In summary, Mr Jason Huang is a 73 year old man with PMH of hypertension who presented for further evaluation of elevated blood pressure and bradycardia . On arrival to the ER, his blood pressure was elevated to about 194/86, and he was noted to have a normal heart rate. He was given metoprolol po 25mg and become bradycardic for a few minutes , rhythm was reported to show ? complete heart block, which converted to atrial fibrillation /flutter . EKG shows atrial flutter with PVS vs aberrant conduction. Labs showed elevated BNP . Chest x-ray showed arteriosclerosis , no acute process. He was admitted for further evaluation and management. Patient continued to have frequent PVCs, bradycardia in the setting of atrial fibrillation and flutter. He was mostly asymptomatic. Echo showed normal EF of 65%. Patient was evaluated by cardiology and had cardiac cath that showed high-grade lesion in the mid LAD. He has elevated CHADVASC score and was started on anticoagulation. He will continue with plavix and eliquis . He received lasix for decompensated heart failure. AV lizeth blocking agents will be avoided for now. . HCTZ was discontinued and replaced with amlodipine . He will follow with Cardiology outpatient. Physical Exam Const: COMMON NORMALS: no acute distress, patient oriented x3 and alert HENMT: COMMON NORMALS: normocephalic, atraumatic, external ears normal, Normal external nose present, moist oral mucous membranes and oropharynx normal HEAD & SCALP: normocephalic and atraumatic NOSE: Normal external nose present EXTERNAL EAR: Yes external ears normal Eye: COMMON NORMALS: Equal, round and reactive pupils present, EOMs intact bilaterally, conjunctivae normal and no scleral icterus CONJUNCTIVA: Yes conjunctivae normal PUPIL: Yes Equal, round and reactive pupils present Neck/C-Spine: COMMON NORMALS: full ROM, no lymphadenopathy and no JVD Chest: COMMONS NORMALS: normal inspection of the chest Resp: COMMON NORMALS: normal respiratory effort and clear to auscultation bilaterally AUSCULTATION: clear to auscultation bilaterally OTHER: No wheezes or crcakles Cardio: COMMON NORMALS: no JVD, regular rate, regular rhythm, S1 normal heart sound present and S2 normal heart sound present RATE: regular rate RHYTHM: regular rhythm HEART SOUNDS: S1 normal heart sound present and S2 normal heart sound present GI: COMMON NORMALS: Normal to inspection, nondistended, normoactive bowel sounds present, Soft to palpation and non-tender PALPATION: Yes Soft to palpation Extremity: COMMON NORMALS: normal to inspection and no pedal edema Neuro: COMMON NORMALS: patient oriented x3 SENSORIUM/ORIENTATION: Yes alert OTHER: No gross focal deficits Discharge Data Studies Completed and Pending Completed Studies During Hospitalization Category Date Time Status XR chest 1V [id number] Stat Exams 09/18/23 12:47 Completed CV. echo complete* [id number] Stat Ultrasound 09/18/23 20:21 [place] liver [id number] Routine Ultrasound 09/20/23 06:00 Completed Pending at discharge Category Date Time Status [employer] request for service Routine Exams 09/19/23 09:40 Taken [facility] Ab IgG/IgM ref WB [[facility] Western Blot] Routine Lab 09/19/23 04:14 Received Radiology Impressions Liver Ultrasound 09/20/23 06:00 IMPRESSION: Pancreas inadequately visualized. Otherwise, unremarkable RUQ ultrasound. Laboratory Results WBC 5.54 10^3/uL (3.29-11.43) 09/19/23 04:51 RBC 4.52 10^6/uL (3.85-5.65) 09/19/23 04:51 Hgb 13.70 g/dL (11.27-16.99) 09/19/23 04:51 Hct 42.5 % (37-53) 09/19/23 04:51 MCV 94.0 fl (82-101) 09/19/23 04:51 MCH 30.3 pg (27-33) 09/19/23 04:51 MCHC 32.2 g/dL (30-55) 09/19/23 04:51 RDW 13.5 % (12.1-15.1) 09/19/23 04:51 Plt Count 195 10^3/cmm (157-399) 09/19/23 04:51 MPV 10.1 fL (7.4-10.4) 09/19/23 04:51 Neut % (Auto) 59.5 % 09/19/23 04:51 Lymph % (Auto) 27.3 % 09/19/23 04:51 Barnes % (Auto) 9.7 % 09/19/23 04:51 Eos % (Auto) 2.2 % 09/19/23 04:51 Baso % (Auto) 1.1 % 09/19/23 04:51 Neut # (Auto) 3.30 10^3/uL (1.8-7.7) 09/19/23 04:51 Lymph # (Auto) 1.5 10^3/uL (0.8-4.8) 09/19/23 04:51 Barnes # (Auto) 0.5 10^3/uL (0.2-0.9) 09/19/23 04:51 Eos # (Auto) 0.1 10^3/uL (0.0-0.8) 09/19/23 04:51 Baso # (Auto) 0.1 10^3/uL (0.0-0.1) 09/19/23 04:51 Nucleated RBC % (auto) 0 % 09/19/23 04:51 Nucleated RBCs # 0.0 /100WBC 09/19/23 04:51 Sodium 141 mmol/L (136-145) 09/20/23 04:14 Potassium 3.4 mmol/L (3.5-5.1) L 09/20/23 04:14 Chloride 104 mmol/L (98-107) 09/20/23 04:14 Carbon Dioxide 24 mmol/L (22-29) 09/20/23 04:14 Anion Gap 16.4 (5-19) 09/20/23 04:14 BUN 29 mg/dL (8-23) H 09/20/23 04:14 Creatinine 1.1 mg/dL (0.7-1.2) 09/20/23 04:14 GFR Calculation Not Reportable 09/20/23 04:14 Glucose 115 mg/dL (65-115) 09/20/23 04:14 Calculated Osmolality 302 mOsm/kg (285-295) H 09/19/23 04:51 Calcium 8.8 mg/dL (8.5-10.5) 09/20/23 04:14 Phosphorus 3.5 mg/dL (2.5-4.5) 09/20/23 04:14 Magnesium 2.0 mg/dL (1.7-2.3) 09/19/23 04:51 Total Bilirubin 0.5 mg/dL (0.15-1.2) 09/19/23 04:51 AST 48 U/L (0-40) H 09/19/23 04:51 ALT 137 U/L (0-41) H 09/19/23 04:51 Alkaline Phosphatase 124 U/L (40-130) 09/19/23 04:51 Troponin T Baseline 16 ng/L (0-15) H 09/18/23 13:29 Troponin T 120 Minute 17.03 ng/L (0-15) H 09/18/23 15:46 Delta Troponin T 1.03 ABS# (0-10) 09/18/23 15:46 Troponin T Hi Sens 6Hr 17.46 ng/L (0-15) H 09/18/23 19:11 Troponin T Hi Sens 6Hr Delta 1.46 ng/L (0-12) 09/18/23 19:11 NT-Pro-B Natriuret Pep 1768 pg/mL (0-125) H 09/18/23 13:29 Total Protein 7.0 g/dL (6.6-8.7) 09/19/23 04:51 Albumin 3.8 g/dL (3.5-5.2) 09/20/23 04:14 Globulin 2.8 g/dL (1.3-4.6) 09/19/23 04:51 Triglycerides 94 mg/dL (0-150) 09/20/23 04:14 Cholesterol 155 mg/dL (0-200) 09/20/23 04:14 LDL Cholesterol, Calc 89 mg/dL (50-129) 09/20/23 04:14 HDL Cholesterol 47 mg/dL (60-100) L 09/20/23 04:14 LDL/HDL Ratio 1.89 RATIO (0.00-3.22) 09/20/23 04:14 Cholesterol/HDL Ratio 3.30 mg/dL (1.0-5.00) 09/20/23 04:14 TSH 1.61 uIU/mL (0.27-4.20) 09/18/23 13:29 Vitals Last Vital Signs Temp 98.0 F 09/20/23 12:13 Pulse 67 09/20/23 12:13 Resp 15 09/20/23 12:13 BP 130/60 09/20/23 12:13 Pulse Ox 92 09/20/23 12:13 O2 Del Method Room Air 09/20/23 11:38 Discharge Plan Discharge Patient Disposition: Home Condition: Stable Prescriptions: New atorvastatin 40 mg Tablet 40 mg PO BEDTIME 30 Days Qty: 30 1RF clopidogrel 75 mg Tablet 75 mg PO DAILY 30 Days Qty: 30 4RF potassium chloride [Klor-Con M20] 20 mEq Tablet,Er Particles/Crystals 20 meq PO DAILY 30 Days Qty: 30 0RF tamsulosin 0.4 mg Capsule 0.4 mg PO DAILY 30 Days Qty: 30 0RF lisinopril 10 mg Tablet 10 mg PO DAILY 30 Days Qty: 30 1RF furosemide 20 mg Tablet 20 mg PO DAILY@0800 30 Days Qty: 30 0RF magnesium L-lactate [Magtab] 84 mg Tablet Extended Release 84 mg PO BID 30 Days Qty: 60 0RF Eliquis 5 mg tablet 5 mg PO BID 30 Days Qty: 60 4RF amlodipine 5 mg tablet 5 mg PO DAILY 30 Days Qty: 30 0RF Discontinued lisinopril-hydrochlorothiazide 10-12.5 mg tablet 1 tab PO DAILY Discharge Orders: Discharge Order (Routine); Ordered 09/20/23 Ordered By: Ivet Wilson Referrals: Snow Barahona FNP [Primary Care Provider] - (Please call for an follow-up appointment with Snow Barahona within 4 to 7 days. Thank you! ) Anthony Cruz MD [Physician] - 1 week (We have notified your physician's clinic of the need for a follow-up appointment to be scheduled. If you have not heard from them within the next 2 business days, please call them directly. ) Discharge Diet: Low Salt Discharge Activity: Increase activity as tolerated Patient Instructions: Lisinopril (By mouth), Furosemide (By mouth) (Lasix), Potassium Chloride (By mouth), Amlodipine (By mouth), Atorvastatin (By mouth) (Lipitor, Atorvaliq), Tamsulosin (By mouth) (Flomax), Clopidogrel (By mouth) (Plavix), Magnesium (By mouth), Apixaban (By mouth) (Eliquis), Hypertension (DC), Heart Catheterization (DC), CHF Stoplight, Chest Pain Stoplight, Opioid Safety, Post Angiogram Home Care Instructions Activity Restrictions/Additional Instructions: #Continue plavix and eliquis . Start Eliquis on 09/21/2023 #Discontinue Hydrochlorothiazide #start lasix and amlodipine as prescribed Discharge Attestations Time Spent in Discharge Care*: greater than 30 min Quality Metrics Clinical Quality Measures [ No reported AMI, CVA or VTE this stay] Coding Level of Care Code Acute Code for g Fwd Diagnoses Atherosclerotic heart disease of [place] coronary artery with other forms of angina pectoris I25.118 Acute on chronic diastolic (congestive) heart failure I50.33 Ventricular arrhythmia I49.9 Atrial fibrillation/flutter I48.91; I48.92 Bradycardia, severe sinus R00.1 Primary hypertension I10 Hypertension type: primary hypertension
--- NOTE | 2023-09-20 13:59 | PC.NURSE ---
Discharge Note Patient discharged to [home] via [w/c to POV] accompanied by [family]. Discharge instructions reviewed with patient and/or veterans service representative. Mobile pharmacy medications and/or prescriptions provided. Belongings/home medications returned.
[2023-09-21 15:48] LABS: Lymes IGG WB <0.90 index
== END 2023-09-20 13:52 | disposition home or self-care (01) | DRG 321 ==
LOC: ER 17:59 → CSU 18:05
PROVIDERS: Emergency Medicine; Internal Medicine; Internal Medicine Cardiovascular Disease; Admitting Provider Student in an Organized Health Care Education/Training Program; Emergency Provider Family Medicine; PCP Nurse Practitioner Family; Visit Provider Student in an Organized Health Care Education/Training Program
PROC: 027034Z Dilation of Coronary Artery, One Artery with Drug-eluting Intraluminal Device, Percutaneous Approach (ICD-10-PCS; principal; 2023-09-19 09:45)
DX: I25.119 Atherosclerotic heart disease of native coronary artery with unspecified angina pectoris (principal); I50.33 Acute on chronic diastolic (congestive) heart failure; I48.91 Unspecified atrial fibrillation; I11.0 Hypertensive heart disease with heart failure; R00.1 Bradycardia, unspecified; R74.01 Elevation of levels of liver transaminase levels; I49.3 Ventricular premature depolarization; I27.20 Pulmonary hypertension, unspecified; I08.1 Rheumatic disorders of both mitral and tricuspid valves; Z82.49 Family history of ischemic heart disease and other diseases of the circulatory system
CPT/HCPCS: 12345; 36415; 71045; 76705; 80048; 80053; 80061; 80069; 80074; 81003; 83690; 83735; 83880; 84443; 84484; 85025; 86617; 92978; 93005; 93306; 93458; 93571; 96372; 96374; 96375; 96376; 99152; 99153; 99285; C1725; C1753; C1769; C1874; C1887; C1894; C9600; J0153; J0360; J1644; J1650; J1940; J2250; J3010; J3490; J7030; Q0163; Q9967

== ENCOUNTER → 2023-10-06 14:14 | Outpatient (BNVA) | payer MEDICARE, SELFPAY | PROVIDERS: PCP Nurse Practitioner Family; Visit Provider Nurse Practitioner Family | DX: I25.118 Atherosclerotic heart disease of native coronary artery with other forms of angina pectoris (principal); I48.91 Unspecified atrial fibrillation; I48.92 Unspecified atrial flutter; I10 Essential (primary) hypertension | CPT/HCPCS: 36415; 80048; 83880; 99214 ==

== ENCOUNTER → 2023-11-18 14:00 | Outpatient (BNVA) | payer MEDICARE, SELFPAY | PROVIDERS: PCP Nurse Practitioner Family; Visit Provider Internal Medicine Cardiovascular Disease | DX: I11.0 Hypertensive heart disease with heart failure (principal); I50.33 Acute on chronic diastolic (congestive) heart failure; R00.1 Bradycardia, unspecified; I48.91 Unspecified atrial fibrillation; I48.92 Unspecified atrial flutter; I25.118 Atherosclerotic heart disease of native coronary artery with other forms of angina pectoris; Z79.01 Long term (current) use of anticoagulants; I49.8 Other specified cardiac arrhythmias | CPT/HCPCS: 99214 ==

== ENCOUNTER → 2024-01-04 13:53 | Outpatient (BNVA) | payer MEDICARE, SELFPAY | PROVIDERS: PCP Nurse Practitioner Family; Visit Provider Internal Medicine Cardiovascular Disease | DX: I25.10 Atherosclerotic heart disease of native coronary artery without angina pectoris (principal); R06.02 Shortness of breath; I48.91 Unspecified atrial fibrillation; I48.92 Unspecified atrial flutter; R00.2 Palpitations; I49.8 Other specified cardiac arrhythmias; I11.0 Hypertensive heart disease with heart failure; I50.33 Acute on chronic diastolic (congestive) heart failure; Z79.01 Long term (current) use of anticoagulants | CPT/HCPCS: 36415; 80048; 83880; 99214 ==

== ENCOUNTER → 2024-09-14 14:06 | Outpatient (BNVA) | payer MEDICARE, SELFPAY | PROVIDERS: PCP Nurse Practitioner Family; Visit Provider Internal Medicine Cardiovascular Disease | DX: I48.91 Unspecified atrial fibrillation (principal); I48.92 Unspecified atrial flutter; Z79.01 Long term (current) use of anticoagulants; I11.0 Hypertensive heart disease with heart failure; I50.33 Acute on chronic diastolic (congestive) heart failure; I25.10 Atherosclerotic heart disease of native coronary artery without angina pectoris; R00.1 Bradycardia, unspecified; I49.8 Other specified cardiac arrhythmias; R00.2 Palpitations; E78.5 Hyperlipidemia, unspecified | CPT/HCPCS: 99214 ==

== ENCOUNTER → 2025-03-09 10:22 | Outpatient (BNVA) | payer MEDICARE, SELFPAY | PROVIDERS: PCP Nurse Practitioner Family; Visit Provider Internal Medicine Cardiovascular Disease | DX: I25.10 Atherosclerotic heart disease of native coronary artery without angina pectoris (principal); I11.0 Hypertensive heart disease with heart failure; I50.33 Acute on chronic diastolic (congestive) heart failure; I48.91 Unspecified atrial fibrillation; I48.92 Unspecified atrial flutter; Z79.01 Long term (current) use of anticoagulants; I49.9 Cardiac arrhythmia, unspecified; R00.1 Bradycardia, unspecified | CPT/HCPCS: 99214 ==